=== PATIENT | male | born 1935 | race Caucasian/White ===

== ENCOUNTER 2017-12-03 08:23 | Inpatient (IN) | payer OTHER ==
[2017-12-03] MEDS ORDERED: ACETAMINOPHEN 325 MG TABLET PO PRN (12:15)
[2017-12-03] MEDS ORDERED: ONDANSETRON 4 MG (ODT) TAB PO PRN (12:16)
[2017-12-03] MEDS ORDERED: ONDANSETRON 4 MG/2 ML VIAL IV PRN (12:16)
[2017-12-03] MEDS ORDERED: POLYETHYL GLY 3350 17 GM/DOSE PO PRN (12:16)
[2017-12-03] MEDS ORDERED: D50W 25 GM/50 ML SYRINGE IV PRN (12:19)
[2017-12-03] MEDS ORDERED: GLUCAGON 1 MG/VIAL IM PRN (12:19)
--- NOTE | 2017-12-03 12:49 | P.HP ---
Certification for Inpatient Patient admitted to: Inpatient With expected LOS: >2 Midnights Practitioner: I am a practitioner with admitting privileges, knowledge of patient current condition, hospital course, and medical plan of care. Services: Services provided to patient in accordance with Admission requirements found in Title 42 Section 412.3 of the Code of Federal Regulations Patient History Date of Service: 12/03/17 Reason for admission: PSEUDOMONAS GROWTH FROM ULCER. History of Present Illness: MR. JONES HAS VERY POOR SKIN CONDITION FOR LONG DURATION FROM BEING DIABETIC , HE HAS ULCER R HEEL FOR THAT HE COMES TO [facility]. WE CULTURED AND IT GREW PSEUDOMONAS FROM THE GREEN FOUL DISCHARGE HE HAD. THIS IS NOT SENSITIVE TO ANY ORAL ABX. I CALLED HIM TODAY TO GET ADMITTED FOR IV ABX. HE IS FATIGUED. Allergies No Known Allergies Allergy (Verified 06/10/16 22:20) Home Medications: Atorvastatin Calcium [Lipitor*] 10 mg PO BEDTIME 01/20/16 Metoprolol Tartrate [Lopressor*] 100 mg PO BID 01/20/16 Insulin Detemir [Levemir*] 120 units SQ DAILY 05/06/16 Pregabalin [Lyrica] 150 mg PO BID 05/06/16 Furosemide 40 mg PO BID 06/10/16 Potassium Chloride [Klor-Con M10] 10 meq PO DAILY 06/10/16 Cephalexin [Keflex*] 500 mg PO DAILY 10/04/17 Levocetirizine Dihydrochloride [Xyzal] 5 mg PO DAILY 10/04/17 Insulin Detemir [Levemir*] 40 unit SQ BEDTIME 10/05/17 Smz./Tmp. [Bactrim Ds 800 MG/160 MG] 1 tab PO BID #14 tab 10/06/17 - Past Medical/Surgical History Diabetic: Yes -: IDDM -: diabetic neuropathy. -: bilat cellulitis to legs -: bilat lens implants -: HTN -: hypercholesterolemia -: diabetic neuropathy -: Anemia -: bladder ca -: Spinal Surgery 1989 -: Right Knee Replacement 1989 -: Left ankle sx - pin in place 1994 -: Left 2nd toe sx - nikia in place -: bladder sx benign tumor removal - Family History Father -: Stroke - Social History Alcohol use: No CD- Drugs: No Caffeine use: Yes Review of Systems 10-point ROS is otherwise unremarkable General: Weakness, Malaise Integumentary: Other, As per HPI Physical Examination - Physical Exam General: Alert, Mild distress, Obese HEENT: Atraumatic, PERRLA, Mucous membr. moist/pink, EOMI, Sclerae nonicteric Neck: Supple, 2+ carotid pulse no bruit, No LAD, Without JVD or thyroid abnormality Respiratory: Clear to auscultation bilaterally, Normal air movement Cardiovascular: Regular rate/rhythm, Normal S1 S2 Gastrointestinal: Normal bowel sounds, No tenderness Integumentary: Tenderness/swelling, Erythema, Warmth (RIGHT LEG.), Diabetic ulcer (HEEL ULCER, WITH EXUDATE, YELLOW. FIBRIN.), Other Neurological: Normal gait, Normal speech, Normal strength at 5/5 x4 extr, Normal tone, Normal affect Lymphatics: No axilla or inguinal lymphadenopathy Assessment and Plan - Problems (Diagnosis) (1) Diabetic foot ulcer associated with type 2 diabetes mellitus, with fat layer exposed Current Visit: Yes Status: Chronic Plan: CEFEPIME IV RESUME SANTYL ON THE ULCER PROGNOSIS GUARDED. RESUME DM MEDS. (2) Cellulitis of right leg Onset Date: 10/05/17 Current Visit: No Status: Acute Plan: ABOVE CEFEPIME SHOULD WORK. - Advance Directives Does patient have a Living Will: No Does patient have a Durable POA for Healthcare: No
[2017-12-03] MEDS: NACHLORIDE 0.45% 1,000 ML IV SCH (13:38)
[2017-12-03] MEDS: CEFEPIME/SWI 1gm 1 GM/10 ML SYR IV SCH ×2 (13:38→17:50)
[2017-12-03] MEDS: INSULIN -REGULAR HUMAN 50 UNIT/0.5 ML ML SQ SCH ×3 (13:39→22:40)
--- NOTE | 2017-12-03 14:15 | RAD REPORT ---
EXAM DESCRIPTION: RAD - Chest Single View - 12/03/2017 1:51 pm CLINICAL HISTORY: Chest pain. COMPARISON: 10/04/2017 FINDINGS: Portable technique limits examination quality. Left lung base opacification appears stable since comparative studies. Heart is mildly prominent. Aor tic atherosclerosis. No displaced fractures. IMPRESSION: Stable chest since 10/04/2017.
[2017-12-03 14:54] LABS: Protime INR 1.03
[2017-12-03 15:00] LABS: Absolute Lymphocytes (CBC) 1.1 K/uL (0.7-4.9); Absolute Monocytes 0.5 K/uL (0.1-1.3); Absolute Neutrophil 9.4 K/uL (1.8-8.0); Basophils % 0.1 % (0-1.3); Eosinophils % 0.8 % (0-4.4); Hematocrit 32.9 % (39.6-49.0); Lymphocytes % 9.6 % (15.3-44.8); MCH 27.2 pg (27.0-35.0); MCV 85.9 fL (80-100); Monocytes % 4.4 % (3.3-12.3); RBC Red Blood Cell Count 3.83 M/uL (4.33-5.43)
[2017-12-03 15:23] LABS: Albumin 3.2 g/dL (3.2-5.5); Bilirubin Direct 0.1 mg/dL (0-0.2); Bilirubin Total 0.7 mg/dL (0.3-1.2); Phosphorus 2.4 mg/dL (2.5-4.3); Potassium 4.1 mEq/L (3.6-5.0); Protein, Total 6.3 g/dL (6.0-8.3); Thyroid Stimulating Hormone 1.78 uIU/mL (0.34-5.60)
[2017-12-03] MEDS: ENOXAPARIN 40 MG/0.4 ML SQ SCH (17:50)
[2017-12-03 17:56] LABS: Urine White Blood Cell Casts OK
[2017-12-03 17:57] LABS: Anisocytosis 2+; Blood Morphology Comment NOTED (NOT SEEN); Platelet Estimate ADEQ; Platelets, Giant 1
[2017-12-03 22:14] LABS: UR CREAT 69.9 mg/dL; UR MICROALBUMIN 2.7 mg/dL (< 1.9)
[2017-12-03 22:18] LABS: Urine Appearance CLOUDY; Urine Bilirubin NEGATIVE (NEG); Urine Blood TRACE (NEG); Urine Color YELLOW; Urine Glucose 2+ (NEG); Urine Microscopic Reflex ORDER UMIC; Urine Protein TRACE (NEG); Urine Urobilinogen 0.2 mg/dL (0.2-1.0)
[2017-12-03 22:25] LABS: Urine Bacteria <20 /HPF (NONE SEEN); Urine Culture Reflex Order REFLEXED; Urine RBC <5 /HPF (NONE SEEN); Urine Yeast PRESENT (NONE SEEN)
[2017-12-03] MEDS: FUROSEMIDE 40 MG TABLET PO SCH (23:47)
[2017-12-03] MEDS: METOPROLOL TAR 50 MG TAB PO SCH (23:48)
[2017-12-03] MEDS: PREGABALIN 150 MG CAP PO SCH (23:49)
[2017-12-04] MEDS: CEFEPIME/SWI 1gm 1 GM/10 ML SYR IV SCH ×3 (01:23→17:54)
[2017-12-04 05:17] LABS: Absolute Lymphocytes (CBC) 1.1 K/uL (0.7-4.9); Absolute Monocytes 0.4 K/uL (0.1-1.3); Absolute Neutrophil 6.5 K/uL (1.8-8.0); Basophils % 0.2 % (0-1.3); Eosinophils % 1.6 % (0-4.4); Hematocrit 29.5 % (39.6-49.0); Lymphocytes % 13.5 % (15.3-44.8); MCH 28.5 pg (27.0-35.0); MCV 84.3 fL (80-100); MPV 8.6 fL (7.6-11.3); Monocytes % 5.1 % (3.3-12.3); RBC Red Blood Cell Count 3.49 M/uL (4.33-5.43)
[2017-12-04 06:00] LABS: Magnesium 1.9 mg/dL (1.8-2.5); Potassium 4.3 mEq/L (3.6-5.0)
[2017-12-04] MEDS: INSULIN -REGULAR HUMAN 50 UNIT/0.5 ML ML SQ SCH ×4 (07:30→21:33)
[2017-12-04] MEDS: METOPROLOL TAR 50 MG TAB PO SCH ×2 (08:31→20:37)
[2017-12-04] MEDS: LOPERAMIDE HCL 2 MG CAPSULE PO PRN (08:32)
[2017-12-04] MEDS: FUROSEMIDE 40 MG TABLET PO SCH ×2 (08:33→17:54)
[2017-12-04] MEDS: PREGABALIN 150 MG CAP PO SCH ×2 (08:33→20:37)
[2017-12-04 11:49] LABS: A1c Component 0.75 mg/dL
[2017-12-04] MEDS ORDERED: D50W 25 GM/50 ML SYRINGE IV PRN (11:58)
[2017-12-04] MEDS ORDERED: GLUCAGON 1 MG/VIAL IM PRN (11:58)
--- NOTE | 2017-12-04 12:04 | P.PN ---
Subjective Date of Service: 12/04/17 Chief Complaint: LOT STRONGER HE SAYS Subjective: Improving Review of Systems 10-point ROS is otherwise unremarkable General: Weakness, Malaise Genitourinary: Retention (HE HAS SNYDER AT HOME FOR LONG DURATION AND SMALL BAG.) Neurological: Other (DOES NOT WALK AT HOME, HE HAS DIBAETIC NEUROPATHY, OSTEOARTHRITS.) Physical Examination - Vital Signs Temperature: 97.1 F Blood Pressure: 131/64 Pulse: 75 Respirations: 20 Pulse Ox (%): 90 - Physical Exam General: Alert, In no apparent distress, Obese HEENT: Atraumatic, PERRLA, EOMI Neck: Supple, JVD not distended Respiratory: Clear to auscultation bilaterally, Normal air movement Cardiovascular: Regular rate/rhythm, Normal S1 S2 Gastrointestinal: Normal bowel sounds, No tenderness Musculoskeletal: No tenderness Integumentary: Other (WRAPPED WITH ADRIAN BOOTS TO REMOVE EDEMA.) Neurological: Normal speech, Normal tone, Normal affect Lymphatics: No axilla or inguinal lymphadenopathy - Studies Laboratory Data (last 24 hrs) 12/04/17 05:00: Sodium 137, Potassium 4.3, BUN 25 H, Creatinine 1.29 H, Glucose 250 H, Magnesium 1.9 12/04/17 05:00: WBC 8.2 D, Hgb 9.9 L, Hct 29.5 L, Plt Count 153 12/03/17 14:11: Sodium 134 L, Potassium 4.1, BUN 32 H, Creatinine 1.50 H, Glucose 317 H, Phosphorus 2.4 L, Magnesium 2.0, Total Bilirubin 0.7, AST 21, ALT 17, Alkaline Phosphatase 65 12/03/17 14:11: PT 12.2, INR 1.03, APTT 26.4 12/03/17 14:11: WBC 11.1 H, Hgb 10.4 L, Hct 32.9 L, Plt Count 168 Microbiology Data (last 24 hrs): 12/03/17 13:45 Sputum Gram Stain - Final Medications List Reviewed: Yes Assessment And Plan - Current Problems (Diagnosis) (1) Diabetic foot ulcer associated with type 2 diabetes mellitus, with fat layer exposed Current Visit: Yes Status: Chronic Plan: CEFEPIME IV RESUME SANTYL ON THE ULCER PROGNOSIS GUARDED. RESUME DM MEDS. START LEVEMIR BID DEPSITE ADVISE HOW TO THEY ARE NOT ABLE TO CONTROL DM WELL. DOGS ARE NOT ALLOWED TO COME NEAR HIM. HIS HYGIENE REMAINS POOR. (2) Cellulitis of right leg Onset Date: 10/05/17 Current Visit: No Status: Acute Plan: ABOVE CEFEPIME SHOULD WORK.A ABOVE PICC LINE (3) Diabetes mellitus Current Visit: No Status: Chronic Plan: A1C FU DOS ADJUSTED
[2017-12-04] MEDS: COLLAGENASE 30 GM OINTMENT TOP SCH (12:30)
[2017-12-04 13:20] LABS: A1c Component 0.75 mg/dL; Hemoglobin A1c 8.9 % (4-6.0)
[2017-12-04] MEDS: ENOXAPARIN 40 MG/0.4 ML SQ SCH (17:51)
[2017-12-04] MEDS: INSULIN DETEMIR 100 UNIT/1 ML INSULIN SQ SCH (17:52)
--- NOTE | 2017-12-04 18:55 | RAD REPORT ---
EXAM DESCRIPTION: RAD - Chest Single View - 12/04/2017 6:34 pm CLINICAL HISTORY: PICC line placement COMPARISON: None. FINDINGS: Portable chest was obtained following placement of a right upper extremity PICC line. The catheter tip projects over the SVC.
[2017-12-04] MEDS: PROMOD 30 ML DOSE PO SCH (20:37)
[2017-12-04] MEDS: ATORVASTATIN 10 MG TAB PO SCH (20:37)
[2017-12-04] MEDS ORDERED: INSULIN DETEMIR 100 UNIT/1 ML INSULIN SQ SCH (21:00)
[2017-12-04] MEDS ORDERED: PREGABALIN 150 MG CAP PO SCH (21:00)
[2017-12-04] MEDS ORDERED: METOPROLOL TAR 50 MG TAB PO SCH (21:00)
[2017-12-04] MEDS ORDERED: FUROSEMIDE 40 MG TABLET PO SCH (21:00)
[2017-12-04] MEDS: NACHLORIDE 0.45% 1,000 ML IV SCH (22:20)
[2017-12-04] MEDS: DIPHENHYDRAMINE 25 MG TAB/CAP PO PRN (23:50)
[2017-12-05] MEDS: CEFEPIME/SWI 1gm 1 GM/10 ML SYR IV SCH ×3 (01:05→16:19)
[2017-12-05] MEDS: NACHLORIDE 0.45% 1,000 ML IV SCH (05:36)
[2017-12-05 06:13] LABS: Absolute Lymphocytes (CBC) 1.2 K/uL (0.7-4.9); Absolute Monocytes 0.5 K/uL (0.1-1.3); Basophils % 0.3 % (0-1.3); Eosinophils % 2.5 % (0-4.4); Hematocrit 31.8 % (39.6-49.0); Lymphocytes % 15.7 % (15.3-44.8); MCH 27.5 pg (27.0-35.0); MCV 85.9 fL (80-100); MPV 9.1 fL (7.6-11.3); Monocytes % 6.3 % (3.3-12.3)
[2017-12-05 06:15] LABS: Potassium 4.2 mEq/L (3.6-5.0)
[2017-12-05] MEDS: INSULIN -REGULAR HUMAN 50 UNIT/0.5 ML ML SQ SCH ×4 (07:30→22:05)
[2017-12-05] MEDS: INSULIN DETEMIR 100 UNIT/1 ML INSULIN SQ SCH ×2 (08:34→16:18)
[2017-12-05] MEDS: COLLAGENASE 30 GM OINTMENT TOP SCH (09:00)
[2017-12-05] MEDS ORDERED: COLLAGENASE 30 GM OINTMENT TOP SCH (09:00)
[2017-12-05] MEDS: PROMOD 30 ML DOSE PO SCH ×2 (09:00→22:03)
[2017-12-05] MEDS ORDERED: HOME MED 1 EA UNK (Levocetirizine Dihydrochloride [Xyzal] 5 MG) PO SCH (09:00)
[2017-12-05] MEDS ORDERED: HOME MED 1 EA UNK (Potassium Chloride [Klor-Con M10] 10 MEQ) PO SCH (09:00)
[2017-12-05] MEDS: METOPROLOL TAR 50 MG TAB PO SCH ×2 (09:59→21:58)
[2017-12-05] MEDS: POTASSIUM CL SA 10 MEQ TAB PO SCH (10:00)
[2017-12-05] MEDS: CETIRIZINE HCL 5 MG TABLET PO SCH (10:00)
[2017-12-05] MEDS: FUROSEMIDE 40 MG TABLET PO SCH ×2 (10:00→16:19)
[2017-12-05] MEDS: PREGABALIN 150 MG CAP PO SCH ×2 (10:01→21:58)
--- NOTE | 2017-12-05 12:26 | P.PN ---
Subjective Date of Service: 12/05/17 Chief Complaint: LOT STRONGER HE SAYS Subjective: Improving (FEELS BETTER. NO PAIN, NO FEVER) Review of Systems 10-point ROS is otherwise unremarkable General: Weakness, Malaise Integumentary: As per HPI Physical Examination - Vital Signs Temperature: 97.8 F Blood Pressure: 146/68 Pulse: 78 Respirations: 20 Pulse Ox (%): 91 - Physical Exam General: Alert, In no apparent distress, Obese HEENT: Atraumatic, PERRLA, EOMI Neck: Supple, JVD not distended Respiratory: Clear to auscultation bilaterally, Normal air movement Cardiovascular: Regular rate/rhythm, Normal S1 S2 Gastrointestinal: Normal bowel sounds, No tenderness Musculoskeletal: No tenderness Integumentary: No rashes, Diabetic ulcer (R HEEL ULCER IS DRYER, LESS EXUDATE, SMALL ESCHAR WILL BE TAKEN OFF IN [facility].), Other (CHRONIC SKIN CHANGES, LEGS, VENOUS STASIS, DRY SECRETIONS. ) Neurological: Normal speech, Normal tone, Normal affect Lymphatics: No axilla or inguinal lymphadenopathy - Studies Laboratory Data (last 24 hrs) 12/05/17 05:35: Sodium 136, Potassium 4.2, BUN 30 H, Creatinine 1.37 H, Glucose 270 H, Magnesium 2.0 12/05/17 05:35: WBC 7.9, Hgb 10.2 L, Hct 31.8 L, Plt Count 170 Microbiology Data (last 24 hrs): 12/03/17 13:45 Sputum Gram Stain - Final 12/03/17 13:45 Sputum Culture & Sensitivity - Final Medications List Reviewed: Yes Assessment And Plan - Current Problems (Diagnosis) (1) Diabetic foot ulcer associated with type 2 diabetes mellitus, with fat layer exposed Current Visit: Yes Status: Chronic Plan: CEFEPIME IV RESUME SANTYL ON THE ULCER PROGNOSIS GUARDED. RESUME DM MEDS. START LEVEMIR BID DEPSITE ADVISE HOW TO THEY ARE NOT ABLE TO CONTROL DM WELL. DOGS ARE NOT ALLOWED TO COME NEAR HIM. HIS HYGIENE REMAINS POOR. IV CEFEPIME. SANTYL TOPICAL. (2) Cellulitis of right leg Onset Date: 10/05/17 Current Visit: No Status: Acute Plan: ABOVE CEFEPIME SHOULD WORK.A ABOVE PICC LINE (3) Diabetes mellitus Current Visit: No Status: Chronic Plan: A1C FU DOS ADJUSTED
--- NOTE | 2017-12-05 12:54 | EKG ---
Test Date: 2017-12-03 Test Time: 13:39:54 Educational Sign Language Interpreter: CASEY MEASUREMENT RESULTS: Intervals: Rate: 76 SC: 182 QRSD: 114 QT: 428 QTc: 481 [place]: P: 72 SC: 182 QRS: -80 T: 5 INTERPRETIVE STATEMENTS: Normal sinus rhythm Left axis deviation Anterior infarct, age undetermined Abnormal ECG Compared to ECG 10/04/2017 14:43:21 No significant changes Electronically Signed On 12-05-17 12:54:07 CDT by Ganesh Vail
[2017-12-05] MEDS: ENOXAPARIN 40 MG/0.4 ML SQ SCH (16:18)
[2017-12-05] MEDS: LOPERAMIDE HCL 2 MG CAPSULE PO PRN (16:19)
[2017-12-05] MEDS: ATORVASTATIN 10 MG TAB PO SCH (21:58)
[2017-12-05] MEDS: DIPHENHYDRAMINE 25 MG TAB/CAP PO PRN (22:06)
[2017-12-06] MEDS: CEFEPIME/SWI 1gm 1 GM/10 ML SYR IV SCH ×3 (01:52→20:52)
[2017-12-06 05:15] LABS: Absolute Lymphocytes (CBC) 1.2 K/uL (0.7-4.9); Absolute Monocytes 0.4 K/uL (0.1-1.3); Absolute Neutrophil 4.7 K/uL (1.8-8.0); Basophils % 0.5 % (0-1.3); Eosinophils % 3.8 % (0-4.4); Hematocrit 30.6 % (39.6-49.0); Lymphocytes % 18.1 % (15.3-44.8); MCV 85.4 fL (80-100); MPV 8.8 fL (7.6-11.3); Monocytes % 6.3 % (3.3-12.3); RBC Red Blood Cell Count 3.58 M/uL (4.33-5.43)
[2017-12-06 05:22] LABS: Potassium 3.9 mEq/L (3.6-5.0)
[2017-12-06] MEDS ORDERED: KCL 20 MEQ/100 mL IVPB 20 MEQ/100 ML BAG IV SCH (06:00)
[2017-12-06] MEDS: COLLAGENASE 30 GM OINTMENT TOP SCH (09:00)
[2017-12-06] MEDS: INSULIN DETEMIR 100 UNIT/1 ML INSULIN SQ SCH ×2 (09:08→16:36)
[2017-12-06] MEDS: INSULIN -REGULAR HUMAN 50 UNIT/0.5 ML ML SQ SCH ×4 (09:08→20:55)
[2017-12-06] MEDS: PROMOD 30 ML DOSE PO SCH ×2 (09:08→20:56)
[2017-12-06] MEDS: METOPROLOL TAR 50 MG TAB PO SCH ×2 (09:09→20:54)
[2017-12-06] MEDS: POTASSIUM CL SA 10 MEQ TAB PO SCH (09:09)
[2017-12-06] MEDS: PREGABALIN 150 MG CAP PO SCH ×2 (09:09→20:53)
[2017-12-06] MEDS: FUROSEMIDE 40 MG TABLET PO SCH (09:09)
[2017-12-06] MEDS: CETIRIZINE HCL 5 MG TABLET PO SCH (09:09)
[2017-12-06 11:34] LABS: Vitamin D 1,25-Dihydroxy Total 25 pg/mL (18-72); Vitamin D,1,25-OH2, D2 <8 pg/mL
--- NOTE | 2017-12-06 13:06 | P.PN ---
Subjective Date of Service: 12/06/17 Chief Complaint: LOT STRONGER HE SAYS Subjective: Improving Review of Systems 10-point ROS is otherwise unremarkable General: Weakness, Malaise Integumentary: Other (LEG CELLULITIS) Physical Examination - Vital Signs Temperature: 98.2 F Blood Pressure: 116/56 Pulse: 64 Respirations: 17 Pulse Ox (%): 95 - Physical Exam General: Alert, Mild distress HEENT: Atraumatic, PERRLA, EOMI Neck: Supple, JVD not distended Respiratory: Clear to auscultation bilaterally, Normal air movement Cardiovascular: Regular rate/rhythm, Normal S1 S2 Gastrointestinal: Normal bowel sounds, No tenderness Musculoskeletal: No tenderness Integumentary: No rashes Neurological: Normal speech, Normal tone, Normal affect Lymphatics: No axilla or inguinal lymphadenopathy - Studies Laboratory Data (last 24 hrs) 12/06/17 04:49: Sodium 137, Potassium 3.9, BUN 33 H, Creatinine 1.42 H, Glucose 227 H, Magnesium 2.0 12/06/17 04:49: WBC 6.6 D, Hgb 10.0 L, Hct 30.6 L, Plt Count 153 Microbiology Data (last 24 hrs): 12/03/17 21:23 Clean Catch Urine [place] Count - Final >100,000 CFU/ML. 12/03/17 21:23 Clean Catch Urine - Final Pseudomonas Aeruginosa 12/03/17 13:45 Sputum Gram Stain - Final 12/03/17 13:45 Sputum Culture & Sensitivity - Final Medications List Reviewed: Yes Assessment And Plan - Current Problems (Diagnosis) (1) Diabetic foot ulcer associated with type 2 diabetes mellitus, with fat layer exposed Onset Date: 12/06/17 Current Visit: Yes Status: Chronic Plan: CEFEPIME IV RESUME SANTYL ON THE ULCER PROGNOSIS GUARDED. RESUME DM MEDS. START LEVEMIR BID DEPSITE ADVISE HOW TO THEY ARE NOT ABLE TO CONTROL DM WELL. DOGS ARE NOT ALLOWED TO COME NEAR HIM. HIS HYGIENE REMAINS POOR. IV CEFEPIME. SANTYL TOPICAL. (2) Cellulitis of right leg Onset Date: 10/05/17 Current Visit: No Status: Acute Plan: ABOVE CEFEPIME SHOULD WORK.A ABOVE PICC LINE (3) Diabetes mellitus Current Visit: No Status: Chronic Plan: A1C FU DOS ADJUSTED (4) Colonized with infectious organism Current Visit: Yes Status: Chronic Plan: COLONIZED CATHETER-URINE , IGNORE THE COLONIZED PSEUDOMONAS BACTERIA.
[2017-12-06] MEDS: ENOXAPARIN 40 MG/0.4 ML SQ SCH (16:35)
[2017-12-06] MEDS: NACHLORIDE 0.45% 1,000 ML IV SCH (20:52)
[2017-12-06] MEDS: ATORVASTATIN 10 MG TAB PO SCH (20:54)
[2017-12-07 05:20] LABS: Absolute Monocytes 0.4 K/uL (0.1-1.3); Absolute Neutrophil 3.9 K/uL (1.8-8.0); Basophils % 0.7 % (0-1.3); Eosinophils % 3.9 % (0-4.4); Hematocrit 29.7 % (39.6-49.0); Lymphocytes % 18.1 % (15.3-44.8); MCH 27.6 pg (27.0-35.0); MCV 86.4 fL (80-100); Monocytes % 7.1 % (3.3-12.3); RBC Red Blood Cell Count 3.43 M/uL (4.33-5.43)
[2017-12-07 05:57] LABS: Magnesium 2.2 mg/dL (1.8-2.5); Potassium 4.4 mEq/L (3.6-5.0)
[2017-12-07 06:35] VITALS: BMI 34.9
[2017-12-07] MEDS: COLLAGENASE 30 GM OINTMENT TOP SCH (09:00)
[2017-12-07] MEDS: CETIRIZINE HCL 5 MG TABLET PO SCH (09:10)
[2017-12-07] MEDS: METOPROLOL TAR 50 MG TAB PO SCH (09:11)
[2017-12-07] MEDS: PROMOD 30 ML DOSE PO SCH (09:11)
[2017-12-07] MEDS: INSULIN DETEMIR 100 UNIT/1 ML INSULIN SQ SCH (09:11)
[2017-12-07] MEDS: PREGABALIN 150 MG CAP PO SCH (09:11)
[2017-12-07] MEDS: CEFEPIME/SWI 1gm 1 GM/10 ML SYR IV SCH (09:11)
[2017-12-07] MEDS: INSULIN -REGULAR HUMAN 50 UNIT/0.5 ML ML SQ SCH ×2 (09:12→13:08)
[2017-12-07 10:14] VITALS: O2SAT 91
--- NOTE | 2017-12-07 12:45 | P.DS ---
Admission Date: 12/03/17 Discharge Date: 12/07/17 Disposition: DC HOME/HOME HEALTH CARE Discharge Condition: FAIR Reason for Admission: LOT STRONGER HE SAYS - Problems (1) Diabetic foot ulcer associated with type 2 diabetes mellitus, with fat layer exposed Onset Date: 12/06/17 Current Visit: Yes Status: Chronic (2) Cellulitis of right leg Onset Date: 10/05/17 Current Visit: No Status: Acute (3) Diabetes mellitus Current Visit: No Status: Chronic (4) Colonized with infectious organism Current Visit: Yes Status: Chronic Brief History of Present Illness: MR. JONES HAS VERY POOR SKIN CONDITION FOR LONG DURATION FROM BEING DIABETIC , HE HAS ULCER R HEEL FOR THAT HE COMES TO [facility]. WE CULTURED AND IT GREW PSEUDOMONAS FROM THE GREEN FOUL DISCHARGE HE HAD. THIS IS NOT SENSITIVE TO ANY ORAL ABX. I CALLED HIM TODAY TO GET ADMITTED FOR IV ABX. HE IS FATIGUED. MR. JONES HAS DONE WELL WITH HIS INFECTION IN RIGHT LEG. HE HAS ULCER R HEEL FOR THAT HE GOES TO [facility]. HE IS FEELING GREAT. HE WILL CONTINUE CEFEPIME IV FOR 14 DAYS TOTAL. FU IN [facility]. Vital Signs/Physical Exam: Temp Pulse Resp BP Pulse Ox 97.2 F 67 16 133/61 91 12/07/17 08:00 12/07/17 09:11 12/07/17 08:00 12/07/17 09:11 12/07/17 08:00 Laboratory Data at Discharge: WBC 5.6 K/uL (4.3-10.9) D 12/07/17 05:00 Hgb 9.5 g/dL (13.6-17.9) L 12/07/17 05:00 Hct 29.7 % (39.6-49.0) L 12/07/17 05:00 Plt Count 165 K/uL (152-406) 12/07/17 05:00 PT 12.2 SECONDS (9.5-12.5) 12/03/17 14:11 INR 1.03 12/03/17 14:11 APTT 26.4 SECONDS (24.3-36.9) 12/03/17 14:11 Sodium 138 mEq/L (135-145) 12/07/17 05:00 Potassium 4.4 mEq/L (3.6-5.0) 12/07/17 05:00 BUN 36 mg/dL (6-20) H 12/07/17 05:00 Creatinine 1.39 mg/dL (0.61-1.24) H 12/07/17 05:00 Glucose 218 mg/dL (65-120) H 12/07/17 05:00 Phosphorus 2.4 mg/dL (2.5-4.3) L 12/03/17 14:11 Magnesium 2.2 mg/dL (1.8-2.5) 12/07/17 05:00 Total Bilirubin 0.7 mg/dL (0.3-1.2) 12/03/17 14:11 AST 21 IU/L (10-42) 12/03/17 14:11 ALT 17 IU/L (10-60) 12/03/17 14:11 Alkaline Phosphatase 65 IU/L (42-121) 12/03/17 14:11 Home Medications: Atorvastatin Calcium [Lipitor*] 10 mg PO BEDTIME 01/20/16 Metoprolol Tartrate [Lopressor*] 100 mg PO BID 01/20/16 Insulin Detemir [Levemir*] 120 units SQ DAILY 05/06/16 Pregabalin [Lyrica] 150 mg PO BID 05/06/16 Furosemide 40 mg PO BID 06/10/16 Potassium Chloride [Klor-Con M10] 10 meq PO DAILY 06/10/16 Cephalexin [Keflex*] 500 mg PO DAILY 10/04/17 Levocetirizine Dihydrochloride [Xyzal] 5 mg PO DAILY 10/04/17 Insulin Detemir [Levemir*] 40 unit SQ BEDTIME 10/05/17 Diet: ADA
[2017-12-07 14:43] VITALS: BP 134/64; TEMP 97.6
== END 2017-12-07 13:40 | disposition home health service (06) | DRG 638 ==
LOC: OBSVTOIN 11:46 → 2ND 11:46
PROVIDERS: ADMIT Internal Medicine; ATTEND Internal Medicine
DX: E11.621 Type 2 diabetes mellitus with foot ulcer (principal); L97.412 Non-pressure chronic ulcer of right heel and midfoot with fat layer exposed; L03.115 Cellulitis of right lower limb; I10 Essential (primary) hypertension; E78.00 Pure hypercholesterolemia, unspecified; M19.90 Unspecified osteoarthritis, unspecified site; Z22.8 Carrier of other infectious diseases
CPT/HCPCS: 11042; 36415; 71045; 80048; 80076; 81003; 81015; 82043; 82570; 82607; 82652; 82962; 83036; 83735; 84100; 84443; 85025; 85610; 85730; 86140; 87040; 87070; 87075; 87077; 87086; 87088; 87186; 87205; 93005; G0378; G0379; J0692; J1650; J3590

== ENCOUNTER 2018-02-13 09:43 | Inpatient (IN) | payer OTHER ==
[2018-02-13] MEDS ORDERED: D50W 25 GM/50 ML SYRINGE IV PRN (10:36)
[2018-02-13] MEDS ORDERED: GLUCAGON 1 MG/VIAL IM PRN (10:36)
[2018-02-13 10:58] VITALS: BMI 32.2
[2018-02-13] MEDS ORDERED: PNEUMOCOCCAL VACCINE 0.5 ML IMVAC ONE (11:00)
[2018-02-13] MEDS ORDERED: DIPHENHYDRAMINE 25 MG TAB/CAP PO PRN (11:00)
[2018-02-13] MEDS ORDERED: ONDANSETRON 4 MG (ODT) TAB PO PRN (11:00)
[2018-02-13] MEDS ORDERED: ONDANSETRON 4 MG/2 ML VIAL IV PRN (11:00)
[2018-02-13] MEDS ORDERED: POLYETHYL GLY 3350 17 GM/DOSE PO PRN (11:00)
[2018-02-13] MEDS ORDERED: LOPERAMIDE HCL 2 MG CAPSULE PO PRN (11:00)
[2018-02-13] MEDS ORDERED: ACETAMINOPHEN 325 MG TABLET PO PRN (11:00)
[2018-02-13] MEDS: INSULIN -REGULAR HUMAN 50 UNIT/0.5 ML ML SQ SCH ×3 (11:30→21:00)
[2018-02-13] MEDS: NACHLORIDE 0.45% 1,000 ML IV SCH (11:30)
--- NOTE | 2018-02-13 11:53 | P.HP ---
Certification for Inpatient Patient admitted to: Inpatient With expected LOS: >2 Midnights Practitioner: I am a practitioner with admitting privileges, knowledge of patient current condition, hospital course, and medical plan of care. Services: Services provided to patient in accordance with Admission requirements found in Title 42 Section 412.3 of the Code of Federal Regulations Patient History Date of Service: 02/13/18 Reason for admission: MULTIBACTERIAL CELLULITIS AND DIABETIC NECROTIC ULCER History of Present Illness: MS JONES HAS GROWN 3 DIFF BACTERIA FROM NON HEALING, DIABETIC ULCER WITH FOUL SMELLING DISCHARGE AND NECROTIC BASE. HE HAS THIS ULCER FOR LONG DURATION. HE IS DIABETIC, WITH CHRONIC EDEMA AND HOUSE CONDITION IS POOR POSSIBLY COLONIZING MULTIPLE BACTERIA. HE HAS NO FEVER, CHEST PAIN, NAUSEA, VOMITING. Allergies No Known Allergies Allergy (Verified 06/10/16 22:20) Home Medications: Atorvastatin Calcium [Lipitor*] 10 mg PO BEDTIME 01/20/16 Metoprolol Tartrate [Lopressor*] 100 mg PO BID 01/20/16 Insulin Detemir [Levemir*] 120 units SQ DAILY 05/06/16 Pregabalin [Lyrica] 150 mg PO BID 05/06/16 Furosemide 40 mg PO BID 06/10/16 Potassium Chloride [Klor-Con M10] 10 meq PO DAILY 06/10/16 Cephalexin [Keflex*] 500 mg PO DAILY 10/04/17 Levocetirizine Dihydrochloride [Xyzal] 5 mg PO DAILY 10/04/17 Insulin Detemir [Levemir*] 40 unit SQ BEDTIME 10/05/17 - Past Medical/Surgical History Has patient received pneumonia vaccine in the past: Yes Diabetic: Yes -: IDDM -: diabetic neuropathy. -: bilat cellulitis to legs -: bilat lens implants -: HTN -: hypercholesterolemia -: diabetic neuropathy -: Anemia -: bladder ca -: Spinal Surgery 1989 -: Right Knee Replacement 1989 -: Left ankle sx - pin in place 1994 -: Left 2nd toe sx - nikia in place -: bladder sx benign tumor removal - Family History Father -: Stroke - Social History Smoking Status: Never smoker Alcohol use: No CD- Drugs: No Caffeine use: Yes Place of Residence: Home Review of Systems 10-point ROS is otherwise unremarkable Integumentary: As per HPI Physical Examination - Physical Exam General: Alert, In no apparent distress, Obese HEENT: Atraumatic, PERRLA, Mucous membr. moist/pink, EOMI, Sclerae nonicteric Neck: Supple, 2+ carotid pulse no bruit, No LAD, Without JVD or thyroid abnormality Respiratory: Clear to auscultation bilaterally, Normal air movement Cardiovascular: Regular rate/rhythm, Normal S1 S2 Gastrointestinal: Normal bowel sounds, No tenderness Musculoskeletal: No tenderness Integumentary: Diabetic ulcer (I TAKE CARE [facility] HIM IN [facility]. HE HAS 1 CM DEEP WIDE ULCER OF THE HEEL WITH NECROTIC TISSUE, FRAIL BLEEDING ) Neurological: Normal speech, Abnormal gait (CONTRACTURES, WHEELCHAIR BOUND) Lymphatics: No axilla or inguinal lymphadenopathy Assessment and Plan - Problems (Diagnosis) (1) Diabetic ulcer of right heel with necrosis of muscle Current Visit: Yes Status: Chronic Plan: DEBRIDE SURGICALLY CONSULT DR SCALES HEALING IS POOR ABOVE CONDITIONS DELINEATED HIS EDEMA IS SEVERE AND THE FARROW WRAPS WERE VERY DIRTY IN THE PAST. WE CURRENTLY ARE DOING COBAN WRAPS. DAUGHTER IS THE MAIN CAREGIVER. Qualifiers: Diabetes mellitus type: type 2 Qualified Code(s): E11.621 - Type 2 diabetes mellitus with foot ulcer; L97.413 - Non-pressure chronic ulcer of right heel and midfoot with necrosis of muscle (2) Cellulitis of right leg Onset Date: 10/05/17 Current Visit: No Status: Chronic Plan: ZOSYN IV ULCER GREW 3 DIFF BACTERIA AND THINK THEY SEEM TO BE CULPRITS AND NOT CONTAMINANT THE ULCER DOES HAVE FLAIL, DARK, NECROTIC TISSUE THAT BLEEDS EASILY AND IS RELATED TO THE MORGANELLA AND PSEUDOMONAS GROWTH. 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 - Advance Directives Does patient have a Living Will: No Does patient have a Durable POA for Healthcare: No
[2018-02-13] MEDS ORDERED: PIPER/TAZO/NS 3.375gm 3.375 GM/100 ML BAG IV SCH (12:00)
[2018-02-13 12:07] LABS: Absolute Lymphocytes (CBC) 1.2 K/uL (0.7-4.9); Absolute Monocytes 0.4 K/uL (0.1-1.3); Absolute Neutrophil 5.4 K/uL (1.8-8.0); Basophils % 0.4 % (0-1.3); Eosinophils % 3.1 % (0-4.4); Hematocrit 33.1 % (39.6-49.0); Lymphocytes % 16.9 % (15.3-44.8); MCV 86.5 fL (80-100); MPV 8.6 fL (7.6-11.3); Monocytes % 6.1 % (3.3-12.3); RBC Red Blood Cell Count 3.83 M/uL (4.33-5.43)
[2018-02-13 12:08] LABS: Protime INR 1.03
[2018-02-13 12:11] LABS: Urine Appearance CLEAR; Urine Bilirubin NEGATIVE (NEG); Urine Blood TRACE (NEG); Urine Color YELLOW; Urine Glucose NEGATIVE (NEG); Urine Protein NEGATIVE (NEG); Urine Specific Gravity <=1.005 (1.005-1.030); Urine Urobilinogen 0.2 mg/dL (0.2-1.0); Urine pH 7.5 (5.0-7.0)
[2018-02-13 12:19] LABS: Urine Microscopic Reflex ORDER UMIC
[2018-02-13 12:23] LABS: UR CREAT 15.2 mg/dL (20-370); UR MICROALBUMIN 1.2 mg/dL (< 1.9)
[2018-02-13 12:28] LABS: Urine Bacteria >50 /HPF (NONE SEEN); Urine RBC NONE SEEN /HPF (NONE SEEN)
[2018-02-13 12:29] LABS: Urine Culture Reflex Order NOT NEEDED; Urine Yeast PRESENT (NONE SEEN); Urine Yeast with Hyphae PRESENT
[2018-02-13 12:30] LABS: A1c Component 0.95 mg/dL; Hemoglobin A1c 10.2 % (4-6.0)
[2018-02-13 15:07] LABS: Albumin 3.3 g/dL (3.2-5.5); Bilirubin Direct 0.1 mg/dL (0-0.2); Bilirubin Total 0.8 mg/dL (0.3-1.2); Magnesium 2.4 mg/dL (1.8-2.5); Phosphorus 3.2 mg/dL (2.5-4.3); Potassium 4.3 mEq/L (3.6-5.0); Thyroid Stimulating Hormone 3.32 uIU/mL (0.34-5.60)
[2018-02-13] MEDS: ENOXAPARIN 40 MG/0.4 ML SQ SCH (16:46)
--- NOTE | 2018-02-13 16:49 | RAD REPORT ---
EXAM DESCRIPTION: Billie De And Kenyatta (2 Views)02/13/2018 4:15 pm CLINICAL HISTORY: Cough COMPARISON: November 2017 FINDINGS: The left base remains hazy. The remainder of the lungs appear clear of acute infiltrate. The heart is normal size IMPRESSION: Left base remains hazy probably secondary to a combination of elevation of the left bill diaphragm and scarring or atelectasis.
[2018-02-13] MEDS: PIPER/TAZO/NS 3.375gm 3.375 GM/100 ML BAG IV SCH (20:00)
[2018-02-13] MEDS ORDERED: INSULIN DETEMIR 100 UNIT/1 ML INSULIN SQ SCH (21:00)
[2018-02-13] MEDS ORDERED: PIPER/TAZO/NS 3.375gm 3.375 GM/100 ML BAG ONE (21:11)
[2018-02-13] MEDS: METOPROLOL TAR 50 MG TAB PO SCH (21:23)
[2018-02-13] MEDS: ATORVASTATIN 10 MG TAB PO SCH (21:24)
[2018-02-13] MEDS: PREGABALIN 150 MG CAP PO SCH (21:24)
[2018-02-13] MEDS: FUROSEMIDE 40 MG TABLET PO SCH (22:24)
[2018-02-14] MEDS ORDERED: PIPER/TAZO/NS 3.375gm 3.375 GM/100 ML BAG ONE (03:28)
[2018-02-14] MEDS: PIPER/TAZO/NS 3.375gm 3.375 GM/100 ML BAG IV SCH ×3 (04:15→20:20)
[2018-02-14 05:32] LABS: Absolute Lymphocytes (CBC) 1.3 K/uL (0.7-4.9); Absolute Monocytes 0.5 K/uL (0.1-1.3); Absolute Neutrophil 5.3 K/uL (1.8-8.0); Basophils % 0.5 % (0-1.3); Eosinophils % 3.8 % (0-4.4); Hematocrit 33.4 % (39.6-49.0); Lymphocytes % 17.9 % (15.3-44.8); MCV 85.9 fL (80-100); MPV 8.8 fL (7.6-11.3); Monocytes % 6.4 % (3.3-12.3); RBC Red Blood Cell Count 3.89 M/uL (4.33-5.43)
[2018-02-14 06:15] LABS: Magnesium 2.1 mg/dL (1.8-2.5); Potassium 4.3 mEq/L (3.6-5.0)
[2018-02-14] MEDS ORDERED: D50W 25 GM/50 ML SYRINGE IV PRN (06:39)
[2018-02-14] MEDS ORDERED: GLUCAGON 1 MG/VIAL IM PRN (06:39)
[2018-02-14] MEDS: INSULIN 70/30 100 UNITS/ML SQ SCH ×2 (07:30→16:30)
[2018-02-14] MEDS: INSULIN -REGULAR HUMAN 50 UNIT/0.5 ML ML SQ SCH ×4 (07:30→20:21)
--- NOTE | 2018-02-14 07:35 | EKG ---
Test Date: 2018-02-13 Test Time: 11:52:36 Scooter Mechanic: SONALI MEASUREMENT RESULTS: Intervals: Rate: 71 W[place]: 220 QRSD: 84 QT: 396 QTc: 430 [place]: P: 38 WY: 220 QRS: 235 T: 154 INTERPRETIVE STATEMENTS: Sinus rhythm with 1st degree AV block Low voltage QRS Inferior infarct, possibly acute Anterolateral infarct, cited previously Abnormal ECG Compared to ECG 12/03/2017 13:39:54 First degree AV block now present Low QRS voltage now present Electronically Signed On 02-14-18 07:35:20 CDT by Ganesh Vail
--- NOTE | 2018-02-14 08:14 | RAD REPORT ---
EXAM DESCRIPTION: RAD - Chest Single View - 02/14/2018 12:01 am CLINICAL HISTORY: Device placement PICC line placement COMPARISON: none FINDINGS: A PICC line has been inserted with its tip in the distal superior vena cava. The left hemidiaphragm remains elevated. Mild left basilar opacity is unchanged. The heart is normal size. IMPRESSION: PICC line with its tip in the distal superior vena cava Left hemidiaphragm remains elevated with mild left basilar opacity which could represent atelectasis or scarring
[2018-02-14] MEDS: POTASSIUM CL SA 10 MEQ TAB PO SCH (09:00)
[2018-02-14] MEDS: FUROSEMIDE 40 MG TABLET PO SCH ×2 (09:00→20:23)
[2018-02-14] MEDS ORDERED: INSULIN DETEMIR 100 UNIT/1 ML INSULIN SQ SCH ×2 (09:00)
[2018-02-14] MEDS ORDERED: HOME MED 1 EA UNK (Levocetirizine Dihydrochloride [Xyzal] 5 MG) PO SCH (09:00)
[2018-02-14] MEDS: RAMIPRIL 5 MG CAP PO SCH (09:00)
[2018-02-14] MEDS: CETIRIZINE HCL 5 MG TABLET PO SCH (09:00)
[2018-02-14] MEDS: PREGABALIN 150 MG CAP PO SCH ×2 (09:00→20:23)
[2018-02-14] MEDS: METOPROLOL TAR 50 MG TAB PO SCH ×2 (09:49→20:22)
[2018-02-14] MEDS: CYANOCOBALAMIN 1000MCG/ML INJ SQ SCH (10:06)
[2018-02-14] MEDS ORDERED: PROPOFOL 200 MG/20 ML VIAL IV ONE (10:21)
[2018-02-14] MEDS ORDERED: LIDOCAINE 1% MPF 5 ML VIAL ONE (10:21)
[2018-02-14] MEDS ORDERED: FENTANYL CITR 100 MCG/2 ML ONE (10:22)
[2018-02-14] MEDS ORDERED: NA CHLORIDE 0.9% 1,000 ML ONE (10:42)
[2018-02-14] MEDS ORDERED: BUPIVACAINE 0.5% Inj,MDV 50 mL VIAL ONE (10:42)
[2018-02-14] MEDS ORDERED: EPHEDRINE SULF 50 MG/5 ML SYR ONE (11:03)
[2018-02-14] MEDS ORDERED: COLLAGENASE 30 GM OINTMENT TOP ONE (11:18)
--- NOTE | 2018-02-14 11:23 | PREOPCON ---
Date of Consultation: 02/14/2018 Reason For Consultation: Infected wound, right heel. History Of Present Illness: The patient is an 82-year-old gentleman with multiple medical problems, who has had a nonhealing diabetic ulcer with foul smell in necrotic base for a long duration. He has lymphedema. He has no fever. No purulent discharge. No chest pain. No sore throat, runny nose, c ough, headaches, or dizziness. Review of Systems: Otherwise unremarkable. Past Medical History: He has insulin-dependent diabetes, diabetic neuropathy, history of cellulitis, hypertension, hypercholesterolemia. Past Surgical History: Bilateral lens implants, bladder cancer surgeries, spinal surgery, right knee replacement, left ankle surgery, left second toe surgery. Allergies: NONE. Social History: He does not smoke. Does not drink alcohol. Family History: Significant for stroke. Physical Examination: Vital Signs: Stable. He is afebrile. General: He is awake, alert, and oriented x3. Head and Neck: Cranial nerves 2 through 12 grossly within normal limits. No neck masses. No JVD. Throat clear. Neck is supple. Chest: Clear. Heart: S1, S2. Abdomen: Soft. Extremities: The patient has Coban wraps on both legs and right ileus exposed. There was some nonhe aling ulcer approximately 4 x 4 cm with a necrotic base and moderate amount of fibrin present. Minim al erythema and warmth. Laboratory Data: White count is 7.4. Coags are normal. Chemistry reviewed. He has renal insuffici ency and . Assessment: An 82-year-old gentleman with infected wound, right heel. Recommendations: Continue antibiotics as ordered. We will take the patient to surgery for debrideme nt of this area. The patient understands the risks, benefits, and alternatives and agrees to procedu re. WINDY/MODMar Voice ID: [id number] Report ID: [id number]
--- NOTE | 2018-02-14 11:24 | P.OP ---
Preoperative diagnosis: Infected wound right heal Postoperative diagnosis: same Primary procedure: Debridement R heel wound to sq and mm 4x4 cm Anesthesia: gen Estimated blood loss: min Specimen: infected tissue Findings: as above Complications: None Transferred to: Recovery Room Condition: Good
[2018-02-14] MEDS ORDERED: HYDROCODONE/APAP 7.5/325 MG TAB PO PRN (11:49)
--- NOTE | 2018-02-14 13:23 | OP ---
Date of Procedure: 02/14/2018 Surgeon: Lewis Thakur MD Preoperative Diagnosis: Infected wound, right heel. Postoperative Diagnosis: Infected wound, right heel. Procedure: Debridement of infected wound right heel 4 x 4 cm to subcutaneous tissue and muscle. Estimated Blood Loss: Minimal. Specimens: Infected tissue for cultures. Findings: As above. Anesthesia: General. Complications: None. Disposition: The patient tolerated the procedure in stable condition and taken to Recovery in good g eneral condition. Procedure In Detail: The patient was brought to the OR and placed in supine position. General anest hesia was begun. The patient was prepped and draped in the usual sterile fashion in the left lateral position. Marcaine 0.5% was infiltrated locally. A 15-blade was used to cut out the necrotic tissu e all over down to the subcutaneous tissue and muscle area. Curettes were used as well as scissors w ere used to debride the remainder of fibrin that could be seen. Wound irrigated, bleeding controlled with pressure, and then collagenase dressing was applied. The patient tolerated the procedure in stable condition and taken to Recovery in good general condition. WINDY/NORBERTO Voice ID: [id number] Report ID: [id number]
[2018-02-14] MEDS: ENOXAPARIN 40 MG/0.4 ML SQ SCH (17:05)
--- NOTE | 2018-02-14 18:17 | P.PN ---
Subjective Date of Service: 02/14/18 Chief Complaint: MULTIBACTERIAL CELLULITIS AND DIABETIC NECROTIC ULCER Subjective: Improving Review of Systems 10-point ROS is otherwise unremarkable General: Weakness Physical Examination - Vital Signs Temperature: 96.9 F Blood Pressure: 119/58 Pulse: 63 Respirations: 20 Pulse Ox (%): 95 - Physical Exam General: Alert, Obese HEENT: Atraumatic, PERRLA, EOMI Neck: Supple, JVD not distended Respiratory: Clear to auscultation bilaterally, Normal air movement Cardiovascular: Regular rate/rhythm, Normal S1 S2 Gastrointestinal: Normal bowel sounds, No tenderness Musculoskeletal: No tenderness Integumentary: Diabetic ulcer Neurological: Normal speech, Normal tone, Normal affect Lymphatics: No axilla or inguinal lymphadenopathy - Studies Laboratory Data (last 24 hrs) 02/14/18 05:15: Sodium 137, Potassium 4.3, BUN 27 H, Creatinine 1.37 H, Glucose 227 H, Magnesium 2.1 02/14/18 05:00: WBC 7.4, Hgb 10.9 L, Hct 33.4 L, Plt Count 176 Microbiology Data (last 24 hrs): 02/13/18 11:52 Blood - Blood Anaerobic Blood Culture - Final 02/13/18 11:47 Blood - Blood Anaerobic Blood Culture - Final 02/13/18 11:05 Wound - Right Heel Gram Stain - Final Medications List Reviewed: Yes Assessment And Plan - Current Problems (Diagnosis) (1) 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 WE CURRENTLY ARE DOING COBAN WRAPS. DAUGHTER IS THE MAIN CAREGIVER. DR SCALES DEBRIDED I AM GOING TO DC HIM AN AM WITH ZOSYN. Qualifiers: Diabetes mellitus type: type 2 Qualified Code(s): E11.621 - Type 2 diabetes mellitus with foot ulcer; L97.413 - Non-pressure chronic ulcer of right heel and midfoot with necrosis of muscle (2) Cellulitis of right leg Onset Date: 10/05/17 Current Visit: No Status: Chronic Plan: ZOSYN IV ULCER GREW 3 DIFF BACTERIA AND THINK THEY SEEM TO BE CULPRITS AND NOT CONTAMINANT THE ULCER DOES HAVE FLAIL, DARK, NECROTIC TISSUE THAT BLEEDS EASILY AND IS RELATED TO THE MORGANELLA AND PSEUDOMONAS GROWTH. 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
[2018-02-14] MEDS: NACHLORIDE 0.45% 1,000 ML IV SCH (20:20)
[2018-02-14] MEDS: ATORVASTATIN 10 MG TAB PO SCH (20:22)
[2018-02-15] MEDS: PIPER/TAZO/NS 3.375gm 3.375 GM/100 ML BAG IV SCH ×2 (03:41→12:40)
[2018-02-15 04:58] LABS: Absolute Lymphocytes (CBC) 1.3 K/uL (0.7-4.9); Absolute Monocytes 0.4 K/uL (0.1-1.3); Absolute Neutrophil 5.9 K/uL (1.8-8.0); Basophils % 0.5 % (0-1.3); Eosinophils % 3.8 % (0-4.4); Hematocrit 33.8 % (39.6-49.0); Lymphocytes % 16.6 % (15.3-44.8); MCH 28.7 pg (27.0-35.0); MCV 86.1 fL (80-100); Monocytes % 5.4 % (3.3-12.3); RBC Red Blood Cell Count 3.92 M/uL (4.33-5.43)
[2018-02-15 05:17] LABS: Magnesium 2.2 mg/dL (1.8-2.5); Potassium 4.3 mEq/L (3.6-5.0)
[2018-02-15] MEDS: INSULIN -REGULAR HUMAN 50 UNIT/0.5 ML ML SQ SCH ×2 (08:54→12:39)
[2018-02-15] MEDS: INSULIN 70/30 100 UNITS/ML SQ SCH (08:54)
[2018-02-15] MEDS: CYANOCOBALAMIN 1000MCG/ML INJ SQ SCH (08:55)
[2018-02-15] MEDS: RAMIPRIL 5 MG CAP PO SCH (08:55)
[2018-02-15] MEDS: CETIRIZINE HCL 5 MG TABLET PO SCH (08:55)
[2018-02-15] MEDS: PREGABALIN 150 MG CAP PO SCH (08:55)
[2018-02-15] MEDS: METOPROLOL TAR 50 MG TAB PO SCH (08:56)
[2018-02-15] MEDS: FUROSEMIDE 40 MG TABLET PO SCH (08:56)
[2018-02-15] MEDS: POTASSIUM CL SA 10 MEQ TAB PO SCH (08:56)
[2018-02-15 09:55] VITALS: O2SAT 96
--- NOTE | 2018-02-15 14:30 | PN ---
Subjective: The patient is awake, alert. No complaint. Objective: Vital Signs: Stable. Afebrile. Extremities: Dressing clean, dry, and intact. Laboratory Data: Cultures revealed Morganella genus and Pseudomonas genus, sensitive to multiple IV antibiotics. Assessment: Infected wound, right heel. Recommendations: Acetic acid, collagenase dressing, IV antibiotics, follow up in the Wound Healing [facility] enter. WINDY/NORBERTO Voice ID: [id number] Report ID: [id number]
[2018-02-15 17:34] VITALS: BP 130/63; TEMP 97.4
[2018-02-17 13:11] LABS: Vitamin D 1,25-Dihydroxy Total 31 pg/mL (18-72); Vitamin D,1,25-OH2, D2 <8 pg/mL
--- NOTE | 2018-03-20 13:15 | P.DS ---
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 HE HAS THIS ULCER FOR LONG DURATION. HE IS DIABETIC, WITH CHRONIC EDEMA AND HOUSE CONDITION IS POOR POSSIBLY COLONIZING MULTIPLE BACTERIA. HE HAS NO FEVER, CHEST PAIN, NAUSEA, VOMITING. MR JONES HAS HAD MULTIPLE INFECTIONS OF RIGHT LEG THAT HAS DIABETIC ULCER. HE HAS GROWN PEUDOMONAS TWICE. THIS TIME ALSO HE IS SENT HOME ON IV ZOSYN. HIS SKIN IS IN POOR CONDITION WITH CHRONIC SCALY SKIN, CHRONIC EDEMA THAT HE IS NOT ABLE TO CONTROL WITH FARROW WRAPS ALSO. HE HAS DM, HTN, AND LYPHEDEMA. HIS ULCER NEVER HEALS EVEN WITH CHRONIC WOUND THERAPY HIS EDEMA NEVER GOES AWAY. THIS IS NOT A DIURETIC DEPENDENT EDEMA BUT IT IS VENOUS CONGESTION. Vital Signs/Physical Exam: Temp Pulse Resp BP Pulse Ox 97.4 F 89 20 130/63 94 02/15/18 15:30 02/15/18 15:30 02/15/18 15:30 02/15/18 15:30 02/15/18 15:30 Laboratory Data at Discharge: WBC 8.1 K/uL (4.3-10.9) 02/15/18 04:25 Hgb 11.2 g/dL (13.6-17.9) L 02/15/18 04:25 Hct 33.8 % (39.6-49.0) L 02/15/18 04:25 Plt Count 221 K/uL (152-406) D 02/15/18 04:25 PT 12.1 SECONDS (9.5-12.5) 02/13/18 11:47 INR 1.03 02/13/18 11:47 APTT 27.2 SECONDS (24.3-36.9) 02/13/18 11:47 Sodium 136 mEq/L (135-145) 02/15/18 04:25 Potassium 4.3 mEq/L (3.6-5.0) 02/15/18 04:25 BUN 26 mg/dL (6-20) H 02/15/18 04:25 Creatinine 1.55 mg/dL (0.61-1.24) H 02/15/18 04:25 Glucose 213 mg/dL (65-120) H 02/15/18 04:25 Phosphorus 3.2 mg/dL (2.5-4.3) 02/13/18 11:47 Magnesium 2.2 mg/dL (1.8-2.5) 02/15/18 04:25 Total Bilirubin 0.8 mg/dL (0.3-1.2) 02/13/18 11:47 AST 19 IU/L (10-42) 02/13/18 11:47 ALT 16 IU/L (10-60) 02/13/18 11:47 Alkaline Phosphatase 63 IU/L (42-121) 02/13/18 11:47 Home Medications: Atorvastatin Calcium [Lipitor*] 10 mg PO BEDTIME 01/20/16 Metoprolol Tartrate [Lopressor*] 100 mg PO BID 01/20/16 Insulin Detemir [Levemir*] 130 units SQ DAILY 05/06/16 Pregabalin [Lyrica] 150 mg PO BID 05/06/16 Furosemide 40 mg PO BID 06/10/16 Potassium Chloride [Klor-Con M10] 10 meq PO DAILY 06/10/16 Levocetirizine Dihydrochloride [Xyzal] 5 mg PO DAILY 10/04/17 Insulin Detemir [Levemir*] 40 unit SQ BEDTIME 10/05/17 Acetic Acid 0.25% [Acetic Acid 0.25%*] 1,000 ml IR DAILYPRN PRN #1 btl 02/15/18 Collagenase [Santyl Ointment] 1 appl TOP DAILY #1 tube 02/15/18 Cyanocobalamin [B12 Injection] 1,000 mcg IM Q7D #4 vial 02/15/18 PIPER/TAZO/NS 3.375gm [Zosyn 3.375 gm/100 ml Ns Ivpb] 3.375 gm IV Q6H 12 Days bag 02/15/18 New Medications: Acetic Acid 0.25% [Acetic Acid 0.25%*] 1,000 ml IR DAILYPRN PRN #1 btl PRN Reason: wound care Collagenase [Santyl Ointment] 1 appl TOP DAILY #1 tube Cyanocobalamin [B12 Injection] 1,000 mcg IM Q7D #4 vial PIPER/TAZO/NS 3.375gm [Zosyn 3.375 gm/100 ml Ns Ivpb] 3.375 gm IV Q6H 12 Days bag Diet: ADA Followup: Hipolito Desai MD [Family Provider] - 1-2 Weeks (Call for appointment) Lewis Thakur MD [ACTIVE - CAN ADMIT] - 1 Week (Call for appointment)
== END 2018-02-15 15:50 | disposition home health service (06) | DRG 982 ==
LOC: 2ND 10:00
PROVIDERS: ADMIT Internal Medicine; ATTEND Internal Medicine
PROC: 02HV33Z Insertion of Infusion Device into Superior Vena Cava, Percutaneous Approach (ICD-10-PCS; 2018-02-13)
PROC: 0KBV0ZZ Excision of Right Foot Muscle, Open Approach (ICD-10-PCS; principal; 2018-02-14 11:30)
DX: E11.621 Type 2 diabetes mellitus with foot ulcer (principal); L97.413 Non-pressure chronic ulcer of right heel and midfoot with necrosis of muscle; L03.115 Cellulitis of right lower limb; B96.5 Pseudomonas (aeruginosa) (mallei) (pseudomallei) as the cause of diseases classified elsewhere; B96.89 Other specified bacterial agents as the cause of diseases classified elsewhere; N31.9 Neuromuscular dysfunction of bladder, unspecified; E11.40 Type 2 diabetes mellitus with diabetic neuropathy, unspecified; E78.00 Pure hypercholesterolemia, unspecified; I10 Essential (primary) hypertension; D64.9 Anemia, unspecified
CPT/HCPCS: 36415; 71045; 71046; 80048; 80076; 81003; 81015; 82043; 82570; 82607; 82652; 82962; 83036; 83735; 84100; 84443; 85025; 85610; 85730; 87040; 87070; 87077; 87086; 87088; 87186; 87205; 88304; 88305; 93005; 94760; J1650; J2543; J3010; J3420; J3590; J7030

== ENCOUNTER 2018-05-04 14:49 | Observation (INO) | payer OTHER ==
[2018-05-04] MEDS ORDERED: D50W 25 GM/50 ML SYRINGE IV PRN (16:41)
[2018-05-04] MEDS ORDERED: GLUCAGON 1 MG/VIAL IM PRN (16:41)
[2018-05-04 17:08] VITALS: BMI 36.5
[2018-05-04 17:19] LABS: Absolute Lymphocytes (CBC) 1.3 K/uL (0.7-4.9); Absolute Monocytes 0.4 K/uL (0.1-1.3); Absolute Neutrophil 4.5 K/uL (1.8-8.0); Basophils % 0.4 % (0-1.3); Eosinophils % 3.8 % (0-4.4); Hematocrit 30.1 % (39.6-49.0); Lymphocytes % 19.9 % (15.3-44.8); MCH 27.7 pg (27.0-35.0); MCV 84.5 fL (80-100); MPV 8.8 fL (7.6-11.3); Monocytes % 5.8 % (3.3-12.3); RBC Red Blood Cell Count 3.56 M/uL (4.33-5.43)
[2018-05-04 17:23] LABS: Protime INR 0.99
[2018-05-04] MEDS: INSULIN -REGULAR HUMAN 50 UNIT/0.5 ML ML SQ SCH ×2 (17:36→21:57)
[2018-05-04] MEDS: ENOXAPARIN 40 MG/0.4 ML SQ SCH (17:37)
--- NOTE | 2018-05-04 17:57 | P.HP ---
Certification for Inpatient Patient admitted to: Inpatient With expected LOS: >2 Midnights Practitioner: I am a practitioner with admitting privileges, knowledge of patient current condition, hospital course, and medical plan of care. Services: Services provided to patient in accordance with Admission requirements found in Title 42 Section 412.3 of the Code of Federal Regulations Patient History Date of Service: 05/04/18 Reason for admission: BOTH LEGS ARE WARM AND RED History of Present Illness: MR JONES COMES TO WOUND CENTER FOR CHRONIC EDEMA AND RIGHT HEEL ULCER. HE IS NOT HEALING. HIS EDEMA AND POOR HYGIENE KEEPS HIM WITH RECURRENT INFECTION. HE HAS HAD RESISTANT PSEUDOMONAS A FEW TIMES IN THE LEG ULCERS. HE IS DIABETIC. Allergies No Known Allergies Allergy (Verified 06/10/16 22:20) - Past Medical/Surgical History Has patient received pneumonia vaccine in the past: Yes Diabetic: Yes -: IDDM -: diabetic neuropathy. -: bilat cellulitis to legs -: bilat lens implants -: HTN -: hypercholesterolemia -: diabetic neuropathy -: Anemia -: bladder ca -: Spinal Surgery 1989 -: Right Knee Replacement 1989 -: Left ankle sx - pin in place 1994 -: Left 2nd toe sx - nikia in place -: bladder sx benign tumor removal - Family History Father -: Stroke - Social History Smoking Status: Former smoker Alcohol use: No CD- Drugs: No Caffeine use: Yes Place of Residence: Home Review of Systems 10-point ROS is otherwise unremarkable General: Weakness, Malaise Integumentary: As per HPI (ULCER HEEL.) Physical Examination - Vital Signs Temperature: 98.3 F Blood Pressure: 145/65 Pulse: 80 Respirations: 16 Pulse Ox (%): 96 - Physical Exam General: Alert, Moderate distress, Obese HEENT: Atraumatic, PERRLA, Mucous membr. moist/pink, EOMI, Sclerae nonicteric Neck: Supple, 2+ carotid pulse no bruit, No LAD, Without JVD or thyroid abnormality Respiratory: Clear to auscultation bilaterally, Normal air movement Cardiovascular: Regular rate/rhythm, Normal S1 S2 Gastrointestinal: Normal bowel sounds, No tenderness Musculoskeletal: No tenderness Integumentary: Diabetic ulcer, Other (JACOB LEGS ERYTHEMA. RAISED TEMPERATURE. WHOLE LEGS ARE COVERED.) Neurological: Normal gait, Normal speech, Normal strength at 5/5 x4 extr, Normal tone, Normal affect Lymphatics: No axilla or inguinal lymphadenopathy - Studies Laboratory Data (last 24 hrs) 05/04/18 16:44: PT 11.7, INR 0.99, APTT 30.8 05/04/18 16:44: WBC 6.4, Hgb 9.9 L, Hct 30.1 L, Plt Count 179 Assessment and Plan - Problems (Diagnosis) (1) Pseudomonas aeruginosa infection Current Visit: Yes Status: Acute Plan: IV ZOSYN THIS IS RECURRENT HE HAS POOR HYGIENE OF SKIN, SKIN CONDITION IS POOR ITSELF AND HE IS DIABETIC PICC LINE DC ON WEDNESDAY. HIS 'S IS ON WEDNESDAY. (2) Diabetes mellitus Current Visit: No Status: Chronic (3) Lymphedema Current Visit: No Status: Chronic - Advance Directives Does patient have a Living Will: Yes Does patient have a Durable POA for Healthcare: Yes
[2018-05-04] MEDS ORDERED: PNEUMOCOCCAL VACCINE 0.5 ML IMVAC ONE (18:00)
[2018-05-04] MEDS ORDERED: ONDANSETRON 4 MG (ODT) TAB PO PRN (18:00)
[2018-05-04] MEDS ORDERED: ONDANSETRON 4 MG/2 ML VIAL IV PRN (18:00)
[2018-05-04] MEDS ORDERED: ACETAMINOPHEN 325 MG TABLET PO PRN (18:00)
[2018-05-04] MEDS ORDERED: DIPHENHYDRAMINE 25 MG TAB/CAP PO PRN (18:00)
[2018-05-04] MEDS ORDERED: POLYETHYL GLY 3350 17 GM/DOSE PO PRN (18:00)
[2018-05-04] MEDS ORDERED: LOPERAMIDE HCL 2 MG CAPSULE PO PRN (18:00)
[2018-05-04 18:01] LABS: Albumin 2.7 g/dL (3.4-5.0); Bilirubin Direct 0.2 mg/dL (0-0.2); Bilirubin Total 0.4 mg/dL (0.2-1.0); Magnesium 2.2 mg/dL (1.8-2.4); Protein, Total 6.7 g/dL (6.4-8.2); Thyroid Stimulating Hormone 3.43 uIU/mL (0.36-3.74)
--- NOTE | 2018-05-04 21:07 | RAD REPORT ---
EXAM DESCRIPTION: RAD - Chest Pa And Lat (2 Views) - 05/04/2018 8:47 pm CLINICAL HISTORY: cellulitis<Reason For Exam>cellulitis Shortness of breath COMPARISON: Chest Single View dated 02/13/2018; Chest Pa And Lat (2 Views) dated 02/13/2018; Chest Sin gle View dated 12/04/2017; Chest Single View dated 12/03/2017<Comparisons> TECHNIQUE: PA and lateral views of the chest were obtained. FINDINGS: The lungs are normal volume. Elevated left hemidiaphragm again noted. Acute infiltrate is not seen. Trachea is midline. Lung parenchyma is similar to comparison. Heart size is normal and ce ntral vasculature is within normal limits. No pleural effusion or pneumothorax seen. No acute bony finding noted. No aortic abnormality. IMPRESSION: No failure, infiltrate or acute cardiopulmonary finding. Above detailed findings are similar to comparison.
[2018-05-04] MEDS: PIPER/TAZO/NS 2.25gm 2.25 GM/50 ML BAG IVPB SCH (21:57)
[2018-05-04] MEDS: NACHLORIDE 0.45% 1,000 ML IV SCH (21:58)
[2018-05-04 23:19] LABS: Urine Appearance CLOUDY; Urine Bilirubin NEGATIVE (NEG); Urine Blood NEGATIVE (NEG); Urine Color YELLOW; Urine Glucose TRACE (NEG); Urine Protein 1+ (NEG)
[2018-05-04 23:45] LABS: Urine Microscopic Reflex ORDER UMIC
[2018-05-05 00:18] LABS: Urine Culture Reflex Order NOT NEEDED
[2018-05-05] MEDS: PIPER/TAZO/NS 2.25gm 2.25 GM/50 ML BAG IVPB SCH ×4 (00:27→17:46)
[2018-05-05 00:36] LABS: Urine Bacteria >50 /HPF (NONE SEEN); Urine RBC <5 /HPF (NONE SEEN)
[2018-05-05 05:57] LABS: Magnesium 2.2 mg/dL (1.8-2.4); Potassium 4.7 mmol/L (3.5-5.1)
[2018-05-05] MEDS ORDERED: DOCUSATE NA 100 MG CAP PO PRN (06:21)
[2018-05-05] MEDS ORDERED: FAMOTIDINE 20 MG TAB PO PRN (07:00)
--- NOTE | 2018-05-05 07:06 | EKG ---
Test Date: 2018-05-04 Test Time: 17:24:54 [employer]ler: SRINI MEASUREMENT RESULTS: Intervals: Rate: 81 TN: 210 QRSD: 96 QT: 388 QTc: 450 [place]: P: 67 TN: 210 QRS: 264 T: 0 INTERPRETIVE STATEMENTS: Sinus rhythm with 1st degree AV block Inferior infarct, age undetermined Anterolateral infarct, age undetermined Abnormal ECG Compared to ECG 02/13/2018 11:52:36 No significant changes Electronically Signed On 05-05-18 07:05:22 CDT by Paulie Alford
[2018-05-05] MEDS ORDERED: D50W 25 GM/50 ML SYRINGE IV PRN (07:24)
[2018-05-05] MEDS ORDERED: GLUCAGON 1 MG/VIAL IM PRN (07:24)
[2018-05-05] MEDS: INSULIN -REGULAR HUMAN 50 UNIT/0.5 ML ML SQ SCH ×4 (07:30→21:00)
[2018-05-05] MEDS ORDERED: INSULIN DETEMIR 120 UNIT SQ SCH (07:45)
[2018-05-05] MEDS: INSULIN GLARGINE 100 UNITS/ML SQ SCH (08:00)
[2018-05-05] MEDS: FUROSEMIDE 40 MG TABLET PO SCH (08:44)
[2018-05-05] MEDS: PREGABALIN 75 MG CAP PO SCH ×2 (08:45→21:49)
[2018-05-05] MEDS: ENOXAPARIN 40 MG/0.4 ML SQ SCH (08:45)
[2018-05-05] MEDS: CETIRIZINE HCL 5 MG TABLET PO SCH (08:45)
[2018-05-05] MEDS: METOPROLOL TAR 50 MG TAB PO SCH ×2 (08:45→21:49)
[2018-05-05] MEDS: POTASSIUM CL SA 10 MEQ TAB PO SCH (08:46)
[2018-05-05] MEDS: COLLAGENASE 30 GM OINTMENT TOP SCH (09:00)
[2018-05-05] MEDS: ALBUTEROL INHALER 60 PUFF/8 GM IH SCH (09:00)
--- NOTE | 2018-05-05 15:21 | RAD REPORT ---
EXAM DESCRIPTION: RAD - Chest Single View - 05/05/2018 3:15 pm CLINICAL HISTORY: Picc line placement COMPARISON: Chest Pa And Lat (2 Views) dated 05/04/2018; Chest Single View dated 02/13/2018; Chest Pa And Lat (2 Views) dated 02/13/2018; Chest Single View dated 12/04/2017 FINDINGS: Portable chest was obtained following placement of a right upper extremity PICC line. The catheter tip projects over the SVC..
[2018-05-05] MEDS ORDERED: INSULIN GLARGINE 100 UNITS/ML SQ SCH (20:30)
[2018-05-05] MEDS ORDERED: ATORVASTATIN 10 MG TAB PO SCH (21:00)
[2018-05-05] MEDS: JUVEN PACKET PO SCH (21:59)
--- NOTE | 2018-05-05 22:06 | P.PN ---
Subjective Date of Service: 05/05/18 Chief Complaint: BOTH LEGS ARE WARM AND RED Subjective: Improving (NO PAIN,NO FEVER) Review of Systems 10-point ROS is otherwise unremarkable Physical Examination - Vital Signs Temperature: 97.8 F Blood Pressure: 125/59 Pulse: 66 Respirations: 18 Pulse Ox (%): 98 - Physical Exam General: Alert, In no apparent distress, Obese HEENT: Atraumatic, PERRLA, EOMI Neck: Supple, JVD not distended Respiratory: Clear to auscultation bilaterally, Normal air movement Cardiovascular: Regular rate/rhythm, Normal S1 S2 Gastrointestinal: Normal bowel sounds, No tenderness Musculoskeletal: No tenderness Integumentary: No rashes, Other (BILAT LEGS, CELLULITIS MODERATE , R HEEL ULCER CHR.) Neurological: Normal speech, Normal tone, Normal affect Lymphatics: No axilla or inguinal lymphadenopathy - Studies Laboratory Data (last 24 hrs) 05/05/18 04:51: Sodium 138, Potassium 4.7, BUN 26 H, Creatinine 1.40 H, Glucose 195 H, Magnesium 2.2 Medications List Reviewed: Yes Assessment And Plan - Current Problems (Diagnosis) (1) Pseudomonas aeruginosa infection Current Visit: Yes Status: Acute Plan: IV ZOSYN THIS IS RECURRENT HE HAS POOR HYGIENE OF SKIN, SKIN CONDITION IS POOR ITSELF AND HE IS DIABETIC PICC LINE DC ON WEDNESDAY. HIS 'S IS ON WEDNESDAY. IV ABX IV ZOSYN DC IN AM IF STABLE. (2) Diabetes mellitus Current Visit: No Status: Chronic (3) Lymphedema Current Visit: No Status: Chronic
[2018-05-05 22:12] VITALS: O2SAT 93
[2018-05-06] MEDS: PIPER/TAZO/NS 2.25gm 2.25 GM/50 ML BAG IVPB SCH ×3 (00:56→08:22)
[2018-05-06] MEDS: NACHLORIDE 0.45% 1,000 ML IV SCH (03:20)
[2018-05-06 04:19] VITALS: TEMP 96.8
[2018-05-06 05:46] LABS: Magnesium 2.4 mg/dL (1.8-2.4); Potassium 4.3 mmol/L (3.5-5.1)
[2018-05-06] MEDS: INSULIN -REGULAR HUMAN 50 UNIT/0.5 ML ML SQ SCH (07:30)
[2018-05-06] MEDS: INSULIN GLARGINE 100 UNITS/ML SQ SCH (08:00)
[2018-05-06] MEDS: ENOXAPARIN 40 MG/0.4 ML SQ SCH (08:23)
[2018-05-06] MEDS: CETIRIZINE HCL 5 MG TABLET PO SCH (08:23)
[2018-05-06] MEDS: FUROSEMIDE 40 MG TABLET PO SCH (08:24)
[2018-05-06] MEDS: POTASSIUM CL SA 10 MEQ TAB PO SCH (08:24)
[2018-05-06] MEDS: PREGABALIN 75 MG CAP PO SCH (08:24)
[2018-05-06] MEDS: METOPROLOL TAR 50 MG TAB PO SCH (08:24)
[2018-05-06] MEDS: JUVEN PACKET PO SCH (08:25)
[2018-05-06 08:26] VITALS: BP 135/65
[2018-05-06] MEDS: COLLAGENASE 30 GM OINTMENT TOP SCH (09:00)
[2018-05-06] MEDS: ALBUTEROL INHALER 60 PUFF/8 GM IH SCH (09:00)
--- NOTE | 2018-05-06 16:53 | P.DS ---
Admission Date: 05/04/18 Discharge Date: 05/06/18 Disposition: ROUTINE DISCHARGE Discharge Condition: SERIOUS Reason for Admission: BOTH LEGS ARE WARM AND RED - Problems (1) Pseudomonas aeruginosa infection Onset Date: 05/06/18 Status: Acute (2) Diabetes mellitus Status: Chronic (3) Lymphedema Status: Chronic Brief History of Present Illness: MR JONES COMES TO WOUND CENTER FOR CHRONIC EDEMA AND RIGHT HEEL ULCER. HE IS NOT HEALING. HIS EDEMA AND POOR HYGIENE KEEPS HIM WITH RECURRENT INFECTION. HE HAS HAD RESISTANT PSEUDOMONAS A FEW TIMES IN THE LEG ULCERS. HE IS DIABETIC. MR. JONES HAS IMPROVED WELL. HIS ERYTHEMA ON BOTH LEGS HAS IMPROVED DOWN TO HIS BASELINE EDEMA. HE IS DISCHAGED WITH HOME IV ZOSYN FOR 10 DAYS. HE HAS TO ATTEND HIS 'S TODAY. Vital Signs/Physical Exam: Temp Pulse Resp BP Pulse Ox 96.8 F 68 18 135/65 90 L 05/06/18 04:00 05/06/18 08:24 05/06/18 04:00 05/06/18 08:24 05/06/18 04:00 Laboratory Data at Discharge: WBC 6.4 K/uL (4.3-10.9) 05/04/18 16:44 Hgb 9.9 g/dL (13.6-17.9) L 05/04/18 16:44 Hct 30.1 % (39.6-49.0) L 05/04/18 16:44 Plt Count 179 K/uL (152-406) 05/04/18 16:44 PT 11.7 SECONDS (9.5-12.5) 05/04/18 16:44 INR 0.99 05/04/18 16:44 APTT 30.8 SECONDS (24.3-36.9) 05/04/18 16:44 Sodium 138 mmol/L (136-145) 05/06/18 04:58 Potassium 4.3 mmol/L (3.5-5.1) 05/06/18 04:58 BUN 31 mg/dL (7-18) H 05/06/18 04:58 Creatinine 1.50 mg/dL (0.55-1.3) H 05/06/18 04:58 Glucose 133 mg/dL (74-106) H 05/06/18 04:58 Phosphorus 3.0 mg/dL (2.5-4.9) 05/04/18 16:44 Magnesium 2.4 mg/dL (1.8-2.4) 05/06/18 04:58 Total Bilirubin 0.4 mg/dL (0.2-1.0) 05/04/18 16:44 AST 18 U/L (15-37) 05/04/18 16:44 ALT 21 U/L (12-78) 05/04/18 16:44 Alkaline Phosphatase 70 U/L (45-117) 05/04/18 16:44 Home Medications: Albuterol Inhaler [Ventolin Inhaler*] 1 puff IH DAILY 05/04/18 Atorvastatin Calcium [Lipitor*] 10 mg PO BEDTIME 05/04/18 Cephalexin [Keflex*] 500 mg PO DAILY 05/04/18 Collagenase [Santyl Ointment*] 1 mana TOP DAILY 05/04/18 D-Methorphan Hb/Prometh HCl [Promethazine-Dm Syrup] 5 ml PO Q6H PRN 05/04/18 Docusate Sodium [Stool Softener] 100 mg PO DAILY PRN 05/04/18 Famotidine 10 mg PO BID PRN 05/04/18 Furosemide [Lasix] 40 mg PO DAILY 05/04/18 Insulin Detemir [Levemir Flextouch] 40 units SQ 30 MIN BEFORE HS 05/04/18 Levocetirizine Dihydrochloride [Xyzal] 5 mg PO DAILY 05/04/18 Metoprolol Tartrate [Lopressor] 100 mg PO BID 05/04/18 Potassium Chloride [Klor-Con 10] 10 meq PO DAILY 05/04/18 Pregabalin [Lyrica] 75 mg PO BID 05/04/18 Insulin Detemir [Levemir Flextouch] 120 units SQ BREAKFAST 05/05/18 PIPER/TAZO/NS 2.25gm [Zosyn 2.25 gm/50 ml Ns Ivpb] 2.25 gm IV Q6H 10 Days bag 05/06/18 New Medications: PIPER/TAZO/NS 2.25gm [Zosyn 2.25 gm/50 ml Ns Ivpb] 2.25 gm IV Q6H 10 Days bag Patient Discharge Instructions: NO CHANGES IN HOME MEDICATIONS. Diet: ADA Activity: Fall precautions Followup: Hipolito Desai MD [Primary Care Provider] - 1-2 Weeks
[2018-05-08 13:18] LABS: Vitamin D 1,25-Dihydroxy Total 33 pg/mL (18-72); Vitamin D,1,25-OH2, D2 <8 pg/mL
== END 2018-05-06 09:15 | disposition home health service (06) ==
LOC: 2ND 15:57
PROVIDERS: ADMIT Internal Medicine; ATTEND Internal Medicine
PROC: 02HV33Z Insertion of Infusion Device into Superior Vena Cava, Percutaneous Approach (ICD-10-PCS; principal; 2018-05-05)
DX: L03.116 Cellulitis of left lower limb (principal); L03.115 Cellulitis of right lower limb; B96.5 Pseudomonas (aeruginosa) (mallei) (pseudomallei) as the cause of diseases classified elsewhere; E11.621 Type 2 diabetes mellitus with foot ulcer; L97.419 Non-pressure chronic ulcer of right heel and midfoot with unspecified severity; E66.9 Obesity, unspecified; Z68.35 Body mass index [BMI] 35.0-35.9, adult; I89.0 Lymphedema, not elsewhere classified; Z96.651 Presence of right artificial knee joint; Z85.51 Personal history of malignant neoplasm of bladder
CPT/HCPCS: 36415 ×2; 36569; 71045; 71046; 80048 ×2; 80076; 82607; 82652; 82962 ×7; 83036; 83735 ×3; 84100; 84443; 85025; 85610; 85730; 87040 ×2; 87077 ×2; 87086; 87088; 87186 ×2; 93005; G0378; G0379; J1650 ×3; 11042; 81003; 81015; J3590

== ENCOUNTER 2019-05-28 08:04 | Emergency (ER) | payer OTHER ==
--- NOTE | 2019-05-28 08:42 | EDPHYS ---
Physician Documentation [facility] Name: Derrick De La Cruz Age: 84 yrs Sex: Male : 1935 Arrival Date: 05/28/2019 Time: 08:07 Bed 7 Private MD: Hipolito Desai V ED Physician Ariela Vinson HPI: 05/28 08:34 This 84 yrs old Male presents to ER via Wheelchair with complaints of Problem kb With Urinary Catheter. 08:34 The patient presents with a Lazar catheter problem, is leaking urine. Onset: The kb symptoms/episode began/occurred this morning. Modifying factors: The symptoms are alleviated by nothing, the symptoms are aggravated by nothing. Associated signs and symptoms: The patient has no apparent associated signs or symptoms. Severity of symptoms: At their worst the symptoms were mild, in the emergency department the symptoms are unchanged. The patient has experienced similar episodes in the past. The patient has not recently seen a physician. Pt reports his catheter started leaking this morning. States this happens periodically and he has to have it changed out. Reports he called Dr Beard's nurse and she normally meets them at the office to change it out, but she is out of town so they had to come to the ER. . Historical: - Allergies: 08:18 No Known Allergies; aa5 - PMHx: 08:18 Diabetes - IDDM; Hypertension; Lymphadema; aa5 - PSHx: 08:18 back sx; R knee replacement; aa5 - Immunization history:: Adult Immunizations up to date. - Ebola Screening: : No symptoms or risks identified at this time. - Social history:: Smoking status: Patient/guardian denies using tobacco. ROS: 08:34 Constitutional: Negative for fever, chills, and weight loss, Neck: Negative for injury, kb pain, and swelling, Cardiovascular: Negative for chest pain, palpitations, and edema, Respiratory: Negative for shortness of breath, cough, wheezing, and pleuritic chest pain, Abdomen/GI: Negative for abdominal pain, nausea, vomiting, diarrhea, and constipation, MS/Extremity: Negative for injury and deformity, Skin: Negative for injury, rash, and discoloration, Neuro: Negative for headache, weakness, numbness, tingling, and seizure. 08:34 : Positive for leaking catheter. Exam: 08:36 Constitutional: This is a well developed, well nourished patient who is awake, alert, kb and in no acute distress. Head/Face: Normocephalic, atraumatic. Neck: Trachea midline, no thyromegaly or masses palpated, and no cervical lymphadenopathy. Supple, full range of motion without nuchal rigidity, or vertebral point tenderness. No Meningismus. Chest/axilla: Normal chest wall appearance and motion. Nontender with no deformity. No lesions are appreciated. Cardiovascular: Regular rate and rhythm with a normal S1 and S2. No gallops, murmurs, or rubs. Normal PMI, no JVD. No pulse deficits. Respiratory: Lungs have equal breath sounds bilaterally, clear to auscultation and percussion. No rales, rhonchi or wheezes noted. No increased work of breathing, no retractions or nasal flaring. Abdomen/GI: Soft, non-tender, with normal bowel sounds. No distension or tympany. No guarding or rebound. No evidence of tenderness throughout. Back: No spinal tenderness. No costovertebral tenderness. Full range of motion. Skin: Warm, dry with normal turgor. Normal color with no rashes, no lesions, and no evidence of cellulitis. MS/ Extremity: Pulses equal, no cyanosis. Neurovascular intact. Full, normal range of motion. Neuro: Awake and alert, GCS 15, oriented to person, place, time, and situation. Cranial nerves II-XII grossly intact. Motor strength 5/5 in all extremities. Sensory grossly intact. Cerebellar exam normal. Normal gait. 08:36 : a lazar is noted, to gravity drainage. Vital Signs: 08:25 BP 142 / 46; Pulse 62; Resp 17; Temp 97.3; Pulse Ox 100% ; bp 09:06 BP 137 / 54; Pulse 71; Resp 16; Temp 97.5; Pulse Ox 100% ; bp MDM: 08:31 Patient medically screened. kb 08:34 Data reviewed: vital signs, nurses notes. Data interpreted: Pulse oximetry: on room air kb is 100 %. Interpretation: normal. Counseling: I had a detailed discussion with the patient and/or guardian regarding: the historical points, exam findings, and any diagnostic results supporting the discharge/admit diagnosis, the need for outpatient follow up, a urologist, to return to the emergency department if symptoms worsen or persist or if there are any questions or concerns that arise at home. 05/28 08:59 Order name: Urine Dipstick--Ancillary (enter results) eb 05/28 09:00 Order name: Urine Culture bp 05/28 08:33 Order name: Lazar: replace lazar; Complete Time: 08:50 kb 05/28 08:33 Order name: Urine Dipstick-Ancillary (obtain specimen); Complete Time: 09:00 kb 05/28 09:00 Order name: Urine Microscopic Only bp Administered Medications: No medications were administered Disposition: 09:45 Co-signature as Attending Physician, Ariela Vinson MD. ma2 Disposition: 05/28/19 08:40 Discharged to Home. Impression: Encounter for fitting and adjustment of urinary device. - Condition is Stable. - Discharge Instructions: Lazar Catheter Care, Adult, [id number]. - Medication Reconciliation Form, Thank You Letter, Antibiotic Education, Prescription Opioid Use form. - Follow up: Emergency Department; When: As needed; Reason: Worsening of condition. Follow up: Private Physician; When: 2 - 3 days; Reason: Recheck today's complaints, Continuance of care, Re-evaluation by your physician. Signatures: Dispatcher [employer] Haritha Curiel, AKASH-Rene BUSTOS-Bhargavi Beasley, RN RN aa5 Timmy Santana RN RN bp Alzahri, Mohammad, MD MD ma2 Corrections: (The following items were deleted from the chart) 09:15 08:40 05/28/2019 08:40 Discharged to Home. Impression: Encounter for fitting and bp adjustment of urinary device. Condition is Stable. Forms are Medication Reconciliation Form, Thank You Letter, Antibiotic Education, Prescription Opioid Use. Follow up: Emergency Department; When: As needed; Reason: Worsening of condition. Follow up: Private Physician; When: 2 - 3 days; Reason: Recheck today's complaints, Continuance of care, Re-evaluation by your physician. kb
--- NOTE | 2019-05-28 08:42 | ER ---
Nurse's Notes [facility] Name: Derrick De La Cruz Age: 84 yrs Sex: Male : 1935 Arrival Date: 05/28/2019 Time: 08:07 Bed 7 Private MD: Hipolito Desai V Diagnosis: Encounter for fitting and adjustment of urinary device Presentation: 05/28 08:17 Presenting complaint: Patient states: "my snyder catheter is leaking around it and we aa5 tried flushing it but it's not working". Pt states "every time this happens they just replace the snyder". Pt reports he's had the snyder for "years" and was replaced about [address] Beard's office. 08:17 Transition of care: patient was not received from another setting of care. Onset of aa5 symptoms was May 28, 2019. Risk Assessment: Do you want to hurt yourself or someone else? Patient reports no desire to harm self or others. Care prior to arrival: None. 08:17 Acuity: BERTHA 4 aa5 08:17 Method Of Arrival: Wheelchair aa5 09:15 Initial Sepsis Screen: Does the patient meet any 2 criteria? No. Patient's initial bp sepsis screen is negative. Does the patient have a suspected source of infection? No. Patient's initial sepsis screen is negative. Triage Assessment: 08:20 General: Appears in no apparent distress. comfortable, Behavior is calm, cooperative, bp appropriate for age. Pain: Denies pain. EENT: No deficits noted. Neuro: No deficits noted. Cardiovascular: No deficits noted. Respiratory: No deficits noted. GI: No signs and/or symptoms were reported involving the gastrointestinal system. : Snyder in place to gravity drainage. Derm: No deficits noted. Musculoskeletal: No deficits noted. Historical: - Allergies: 08:18 No Known Allergies; aa5 - PMHx: 08:18 Diabetes - IDDM; Hypertension; Lymphadema; aa5 - PSHx: 08:18 back sx; R knee replacement; aa5 - Immunization history:: Adult Immunizations up to date. - Ebola Screening: : No symptoms or risks identified at this time. - Social history:: Smoking status: Patient/guardian denies using tobacco. Screenin:27 Abuse screen: Denies threats or abuse. Denies injuries from another. Nutritional bp screening: No deficits noted. Tuberculosis screening: No symptoms or risk factors identified. Fall Risk None identified. Assessment: 08:20 General: SEE TRIAGE NOTE. bp 09:14 Reassessment: PT D/C HOME VIA W/C WITH FAMILY, SNYDER IN PLACE. bp Vital Signs: 08:25 BP 142 / 46; Pulse 62; Resp 17; Temp 97.3; Pulse Ox 100% ; bp 09:06 BP 137 / 54; Pulse 71; Resp 16; Temp 97.5; Pulse Ox 100% ; bp ED Course: 08:07 Patient arrived in ED. mr 08:07 Hipolito Desai MD is Private Physician. mr 08:17 Arm band placed on Patient placed in an exam room, on a stretcher. aa5 08:20 Timmy Santana, RN is Primary Nurse. bp 08:27 Patient has correct armband on for positive identification. Bed in low position. Call bp light in reach. Side rails up X2. Adult w/ patient. 08:28 Triage completed. aa5 08:31 Haritha Pa F[facility]-C [facility]. kb 08:31 Ariela Vinson MD is Attending Physician. kb 08:45 Snyder cath inserted, using sterile technique, 20 Fr., by ri, balloon inflated, to bp gravity drainage, urine specimen collected. 09:15 No provider procedures requiring assistance completed. Patient did not have IV access bp during this emergency room visit. Administered Medications: No medications were administered Outcome: 08:40 Discharge ordered by MD. kb 09:14 Discharged to home via wheelchair, with family. bp 09:14 Condition: stable 09:14 Discharge instructions given to patient, Instructed on discharge instructions, follow up and referral plans. Demonstrated understanding of instructions, follow-up care. 09:15 Patient left the ED. bp Signatures: Hraitha Pa FNP-C FNP-Brien Belgica ClarkeBhargavi, RN RN aa5 Timmy Santana, RN RN bp
[2019-05-28 09:25] VITALS: O2SAT 100
[2019-05-28 09:26] VITALS: BP 137/54; TEMP 97.5
[2019-05-28 11:00] LABS: Urine Bacteria 20-50 /HPF (NONE SEEN)
[2019-05-28 11:01] LABS: Urine Culture Reflex Order NOT NEEDED
[2019-05-28 11:18] LABS: Urine Blood TRACE (NEG); Urine Glucose NEGATIVE (NEG); Urine Protein NEGATIVE (NEG); Urine Specific Gravity 1.015 (1.005-1.030); Urine pH 6.5 (5.0-7.0)
== END 2019-05-28 09:15 | disposition home or self-care (01) ==
LOC: ER 08:04
DX: Z46.6 Encounter for fitting and adjustment of urinary device (principal)
CPT/HCPCS: 51702; 81003; 81015; 87077; 87086; 87088; 87186; 99284

== ENCOUNTER 2019-09-23 | Emergency (ER) | payer OTHER ==
--- NOTE | 2019-09-23 09:58 | ER ---
Nurse's Notes [facility] Name: Derrick De La Cruz Age: 84 yrs Sex: Male : 1935 Arrival Date: 09/23/2019 Time: 08:10 Bed 16 Private MD: Hipolito Desai V Diagnosis: Retention of urine Presentation: 09/23 08:32 Presenting complaint: states: pt needs lazar changed out, normally goes to Dr. olesya eBard but nurse was not available, hx of bladder cancer, urinary retention since midnight, uses size 20 lazar. Transition of care: patient was not received from another setting of care. Onset of symptoms was September 23, 2019. Risk Assessment: Do you want to hurt yourself or someone else? Patient reports no desire to harm self or others. Initial Sepsis Screen: Does the patient meet any 2 criteria? No. Patient's initial sepsis screen is negative. Does the patient have a suspected source of infection? No. Patient's initial sepsis screen is negative. Care prior to arrival: None. 08:32 Method Of Arrival: Wheelchair iw 08:32 Acuity: BERTHA 3 iw Historical: - Allergies: 08:35 No Known Allergies; iw - Home Meds: 08:35 allopurinol 300 mg Oral tab 1 tab once daily [Active]; furosemide 40 mg Oral tab 1 tab iw once daily [Active]; Klor-Con 10 meq Oral once daily [Active]; Levemir 100 unit/mL subcutaneous soln 55 unit daily [Active]; Lipitor 10 mg Oral tab 1 tab once daily [Active]; Lyrica Oral 1 cap 2 times per day [Active]; Metanx (algal oil) 3 mg-35 mg-2 mg -90.314 mg Oral cap daily [Active]; metoprolol tartrate 100 mg Oral tab 1 tab 2 times per day [Active]; Novolog 100 unit/mL Sub-Q soln 10 unit before each meal [Active]; Ventolin HFA 90 mcg/actuation Nebulizer HFAA 1 puff every 4-6 hours [Active]; - PMHx: 08:35 Diabetes - IDDM; Hypertension; Lymphadema; iw - PSHx: 08:35 back sx; R knee replacement; iw - Immunization history:: Adult Immunizations not up to date. - Social history:: Smoking status: Patient denies any tobacco usage or history of. - Ebola Screening: : Patient negative for fever greater than or equal to 101.5 degrees Fahrenheit, and additional compatible Ebola Virus Disease symptoms Patient denies exposure to infectious person Patient denies travel to an Ebola-affected area in the 21 days before illness onset No symptoms or risks identified at this time. Screenin:55 Abuse screen: Denies threats or abuse. Denies injuries from another. Nutritional jl7 screening: No deficits noted. Tuberculosis screening: No symptoms or risk factors identified. Fall Risk None identified. Assessment: 09:55 General: Appears in no apparent distress. uncomfortable, Behavior is calm, cooperative, jl7 appropriate for age. Pain: Denies pain. Neuro: Level of Consciousness is awake, alert, obeys commands, Oriented to person, place, time, situation. Cardiovascular: Patient's skin is warm and dry. Respiratory: Airway is patent Respiratory effort is even, unlabored, Respiratory pattern is regular, symmetrical. : Reports clogged lazar. Derm: Skin is pink, warm \T\ dry. Vital Signs: 08:36 BP 138 / 78; Pulse 61; Resp 16; Temp 97.5; Pulse Ox 97% on R/A; Weight 122.47 kg; iw Height 6 ft. 4 in. (193.04 cm); Pain 0/10; 08:36 Body Mass Index 32.87 (122.47 kg, 193.04 cm) iw ED Course: 08:10 Patient arrived in ED. mr 08:11 Hipolito Desai MD is Private Physician. mr 08:33 Brando Lerner FNP-C is [facility]. la1 08:33 Ariela Vinson MD is Attending Physician. la1 08:34 Triage completed. iw 08:36 Arm band placed on. iw 08:43 Amarilis Rowan RN is Primary Nurse. jl7 09:35 Lazar cath removed intact, balloon deflated. jl7 09:45 Lazar cath inserted, using sterile technique, 20 Fr., by ut, balloon inflated, to jl7 gravity drainage, returned wild urine. Patient tolerated well. 09:55 Patient has correct armband on for positive identification. Bed in low position. Call jl7 light in reach. Side rails up X 1. 09:57 No provider procedures requiring assistance completed. Patient did not have IV access jl7 during this emergency room visit. Administered Medications: No medications were administered Outcome: :58 Discharge ordered by . conner 10:19 Discharged to home via wheelchair, with family. jl7 10:19 Condition: stable 10:19 Discharge instructions given to patient, family, Instructed on discharge instructions, follow up and referral plans. Demonstrated understanding of instructions, follow-up care. 10:19 Patient left the ED. jl7 Signatures: Belgica Clarke Irene, RN RN iw Brando Lerner, MANIFOLD BUILDER-C MANIFOLD BUILDER-Cla1 Amarilis Rowan RN RN josh7
--- NOTE | 2019-09-23 09:59 | EDPHYS ---
Physician Documentation [facility] Name: Derrick De La Cruz Age: 84 yrs Sex: Male : 1935 Arrival Date: 09/23/2019 Time: 08:10 Bed 16 Private MD: Hipolito Desai V ED Physician Ariela Vinson HPI: 09/23 09:42 This 84 yrs old Male presents to ER via Wheelchair with complaints of Problem la1 With Urinary Catheter. 09:42 The patient presents with a Lazar catheter problem, is not draining. Onset: The la1 symptoms/episode began/occurred this morning. Modifying factors: The symptoms are alleviated by nothing, the symptoms are aggravated by nothing. Associated signs and symptoms: Pertinent positives: abdominal pain. Severity of symptoms: At their worst the symptoms were mild. The patient has experienced similar episodes in the past. Pt has lazar and has it changed in the office but they were unable to get in to the office and he is unable to pass urine, attempted to flush at home without relief.. Historical: - Allergies: 08:35 No Known Allergies; iw - Home Meds: 08:35 allopurinol 300 mg Oral tab 1 tab once daily [Active]; furosemide 40 mg Oral tab 1 tab iw once daily [Active]; Klor-Con 10 meq Oral once daily [Active]; Levemir 100 unit/mL subcutaneous soln 55 unit daily [Active]; Lipitor 10 mg Oral tab 1 tab once daily [Active]; Lyrica Oral 1 cap 2 times per day [Active]; Metanx (algal oil) 3 mg-35 mg-2 mg -90.314 mg Oral cap daily [Active]; metoprolol tartrate 100 mg Oral tab 1 tab 2 times per day [Active]; Novolog 100 unit/mL Sub-Q soln 10 unit before each meal [Active]; Ventolin HFA 90 mcg/actuation Nebulizer HFAA 1 puff every 4-6 hours [Active]; - PMHx: 08:35 Diabetes - IDDM; Hypertension; Lymphadema; iw - PSHx: 08:35 back sx; R knee replacement; iw - Immunization history:: Adult Immunizations not up to date. - Social history:: Smoking status: Patient denies any tobacco usage or history of. - Ebola Screening: : Patient negative for fever greater than or equal to 101.5 degrees Fahrenheit, and additional compatible Ebola Virus Disease symptoms Patient denies exposure to infectious person Patient denies travel to an Ebola-affected area in the 21 days before illness onset No symptoms or risks identified at this time. ROS: 09:43 Constitutional: Negative for fever, chills, and weight loss, Eyes: Negative for injury, la1 pain, redness, and discharge, ENT: Negative for injury, pain, and discharge, Neck: Negative for injury, pain, and swelling, Cardiovascular: Negative for chest pain, palpitations, and edema, Respiratory: Negative for shortness of breath, cough, wheezing, and pleuritic chest pain, Abdomen/GI: Negative for abdominal pain, nausea, vomiting, diarrhea, and constipation, Back: Negative for injury and pain. 09:48 : Positive for urinary retention. la1 Exam: 09:47 Constitutional: This is a well developed, well nourished patient who is awake, alert, la1 and in no acute distress. Eyes: Pupils equal round and reactive to light, extra-ocular motions intact. . Periorbital areas with no swelling, redness, or edema. ENT: Mucous membranes moist. Neck: . No Meningismus. Chest/axilla: Normal chest wall appearance and motion. Nontender with no deformity. No lesions are appreciated. Cardiovascular: Normal PMI, no JVD. No pulse deficits. Respiratory: . No increased work of breathing Abdomen/GI: Soft, non-tender, with normal bowel sounds. No guarding or rebound. 09:47 Neuro: Awake and alert, GCS 15, oriented to person, place, time, and situation. 09:47 : a lazar is noted, to gravity drainage, urine is clear. Vital Signs: 08:36 BP 138 / 78; Pulse 61; Resp 16; Temp 97.5; Pulse Ox 97% on R/A; Weight 122.47 kg; iw Height 6 ft. 4 in. (193.04 cm); Pain 0/10; 08:36 Body Mass Index 32.87 (122.47 kg, 193.04 cm) iw MDM: 08:33 Patient medically screened. la1 09:56 Data reviewed: vital signs, nurses notes, and as a result, I will discharge patient. la1 Data interpreted: Pulse oximetry: is not applicable for this patient encounter. Counseling: I had a detailed discussion with the patient and/or guardian regarding: the historical points, exam findings, and any diagnostic results supporting the discharge/admit diagnosis, the need for outpatient follow up, a family practitioner. Response to treatment: the patient's symptoms have resolved after treatment, and as a result, I will discharge patient. ED course: Nurse placed new lazar, draining urine, pt feels better, will FU with PCP. 09/23 09:06 Order name: Lazar; Complete Time: 09:54 la1 Administered Medications: No medications were administered Disposition: 15:29 Co-signature as Attending Physician, Ariela Vinson MD. ma2 Disposition: 09/23/19 09:58 Discharged to Home. Impression: Retention of urine. - Condition is Stable. - Discharge Instructions: Lazar Catheter Care, Adult, Lazar Catheter Care, Adult, [id number]. - Medication Reconciliation Form, Thank You Letter form. - Follow up: Private Physician; When: 2 - 3 days; Reason: Recheck today's complaints, Re-evaluation by your physician. Signatures: Caren Garcia, RN RN iw Brando Lerner, BUNG SEWER-C BUNG SEWER-Cla1 Amarilis Rowan RN RN jl7 Ariela Vinson MD MD ma2 Corrections: (The following items were deleted from the chart) 10:19 09:58 09/23/2019 09:58 Discharged to Home. Impression: Retention of urine. Condition is jl7 Stable. Forms are Medication Reconciliation Form, Thank You Letter, Antibiotic Education, Prescription Opioid Use. Follow up: Private Physician; When: 2 - 3 days; Reason: Recheck today's complaints, Re-evaluation by your physician. la1
== END 2019-09-23 10:19 | disposition home or self-care (01) ==
CPT/HCPCS: 51702; 99284

== ENCOUNTER 2019-10-12 09:56 | Observation (INO) | payer OTHER ==
--- NOTE | 2019-10-12 10:23 | EKG ---
Test Date: 2019-10-12 Test Time: 09:59:30 Infectious Diseases Physician: CASEY MEASUREMENT RESULTS: Intervals: Rate: 65 TX: 202 QRSD: 120 QT: 444 QTc: 461 [place]it: P: 77 TX: 202 QRS: -68 T: 15 INTERPRETIVE STATEMENTS: Sinus rhythm with premature atrial complexes Left axis deviation Possible Anterior infarct, age undetermined Abnormal ECG Compared to ECG 05/04/2018 17:24:54 Atrial premature complex(es) now present Left-axis deviation now present First degree AV block no longer present Myocardial infarct finding still present Electronically Signed On 10-12-19 10:22:24 HAND DRAWER IN by Ganesh Vail
[2019-10-12] MEDS ORDERED: NA CHLORIDE 0.9% 500 ML ONE (10:26)
[2019-10-12 10:28] LABS: Absolute Lymphocytes (CBC) 0.9 K/uL (0.7-4.9); Basophils % 0.5 % (0-1.3); Hematocrit 31.1 % (39.6-49.0); Lymphocytes % 11.6 % (15.3-44.8); MPV 8.5 fL (7.6-11.3); RBC Red Blood Cell Count 3.71 M/uL (4.33-5.43)
[2019-10-12 10:34] LABS: Urine Blood 3+ (NEG); Urine Glucose NEGATIVE (NEG); Urine Protein 2+ (NEG)
--- NOTE | 2019-10-12 10:40 | RAD REPORT ---
EXAM DESCRIPTION: CT - Head Brain Wo Cont - 10/12/2019 10:24 am CLINICAL HISTORY: SYNCOPE COMPARISON: Head Brain Wo Cont dated 06/10/2017 TECHNIQUE: Axial 5 mm thick images of the head were obtained without IV contrast. All CT scans are performed using dose optimization technique as appropriate and may include automated exposure control or mA/KV adjustment according to patient size. FINDINGS: No intracranial hemorrhage, mass, edema or shift of mid-line structures. No acute infarcti on changes seen. No abnormal extra-axial fluid collections. Prominent atrophy and chronic ischemic ch anges are present. No cortical edema or sulcal effacement. Atrophy is in proportion to the amount of volume loss. Intracranial findings are not significantly different from 2017. Mastoid air cells and visualized portions of the paranasal sinuses are clear. No acute bony findings. IMPRESSION: Prominent atrophy and chronic ischemic change with no acute finding identifiable. CT head findings are similar to the 2017 comparison study.
[2019-10-12 10:44] LABS: Urine Bacteria >50 /HPF (NONE SEEN); Urine Culture Reflex Order REFLEXED; Urine Mucus 2+ /HPF (NONE SEEN); Urine RBC >50 /HPF (NONE SEEN)
[2019-10-12 10:48] LABS: BUN Blood Urea Nitrogen 40 mg/dL (7-18); Bicarbonate 29 mmol/L (21-32); Glucose Level 124 mg/dL (74-106); NT PRO-BNP 1353 pg/mL (<450); Potassium 4.5 mmol/L (3.5-5.1); Sodium Level 142 mmol/L (136-145); Troponin (Emerg Dept Use Only) < 0.02 ng/mL (0.0-0.045)
[2019-10-12] MEDS ORDERED: CEFTRIAXONE/SWI 1gm 1 GM/10 ML SYR ONE (11:20)
[2019-10-12 12:12] LABS: Urine Blood 2+ (NEG); Urine Glucose NEGATIVE (NEG); Urine Protein 1+ (NEG); Urine Specific Gravity 1.015 (1.005-1.030); Urine pH 6.5 (5.0-7.0)
--- NOTE | 2019-10-12 12:15 | ER ---
Nurse's Notes [facility] Name: Derrick De La Cruz Age: 84 yrs Sex: Male : 1935 Arrival Date: 10/12/2019 Time: 10:01 Bed 4 Private MD: Diagnosis: Syncope and collapse;Dehydration;Urinary tract infection, site not specified Presentation: 10/12 10:01 Presenting complaint: EMS states: was at the urologist to get his Soriano changed, was in em wheelchair and was trying to transfer over to bed, daughter states he passed out and was snoring, did not fall, BGL 169, also reports weakness. Transition of care: patient was not received from another setting of care. Onset of symptoms was October 12, 2019. Risk Assessment: Do you want to hurt yourself or someone else? Patient reports no desire to harm self or others. Initial Sepsis Screen: Does the patient meet any 2 criteria? No. Patient's initial sepsis screen is negative. Does the patient have a suspected source of infection? Yes: Dysuria/Frequency/Urgency/UTI Catheter related infection (Soriano/dialysis/PICC/central line). Care prior to arrival: None. 10:01 Method Of Arrival: EMS: [facility] em 10:01 Acuity: BERTHA 3 em Historical: - Allergies: 10: No Known Allergies; em - Home Meds: 10:06 allopurinol 300 mg Oral tab 1 tab once daily [Active]; furosemide 40 mg Oral tab 1 tab em once daily [Active]; Klor-Con 10 meq Oral once daily [Active]; Levemir 100 unit/mL subcutaneous soln 55 unit daily [Active]; Lipitor 10 mg Oral tab 1 tab once daily [Active]; Lyrica Oral 1 cap 2 times per day [Active]; Metanx (algal oil) 3 mg-35 mg-2 mg -90.314 mg Oral cap daily [Active]; metoprolol tartrate 100 mg Oral tab 1 tab 2 times per day [Active]; Novolog 100 unit/mL Sub-Q soln 10 unit before each meal [Active]; Ventolin HFA 90 mcg/actuation Nebulizer HFAA 1 puff every 4-6 hours [Active]; - PMHx: 10:06 Lymphadema; Diabetes - IDDM; Hypertension; em - PSHx: 10:06 R knee replacement; back sx; em - Immunization history:: Adult Immunizations up to date. - Coronavirus screen:: The patient has NOT traveled to [place], [place], or [place] in the past 14 days. The patient has NOT had contact with known/suspected case of Coronavirus?. - Social history:: Smoking status: Patient denies any tobacco usage or history of. - Family history:: not pertinent. - Ebola Screening: : Patient negative for fever greater than or equal to 101.5 degrees Fahrenheit, and additional compatible Ebola Virus Disease symptoms Patient denies exposure to infectious person Patient denies travel to an Ebola-affected area in the 21 days before illness onset No symptoms or risks identified at this time. - Hospitalizations: : No recent hospitalization is reported. Screenin:07 Abuse screen: Denies threats or abuse. Nutritional screening: No deficits noted. em Tuberculosis screening: No symptoms or risk factors identified. Fall Risk None identified. Assessment: 10:06 General: Appears in no apparent distress. comfortable, Behavior is calm, cooperative, em appropriate for age, Reports fatigue for 1-2 days. Pain: Complains of pain in coccyx. Neuro: Level of Consciousness is awake, alert, obeys commands, Oriented to person, place, time, situation, Appropriate for age. Cardiovascular: Reports shortness of breath, Denies chest pain, Capillary refill < 3 seconds Patient's skin is warm and dry. Edema is 4+ to left midcalf, left ankle, right midcalf and right ankle Rhythm is sinus rhythm. Respiratory: Airway is patent Respiratory effort is even, unlabored, Respiratory pattern is regular, symmetrical. GI: Abdomen is obese. : Soriano in place Urine is clear. Derm: Skin is intact, is thin, Skin is pink, warm \T\ dry. Musculoskeletal: Range of motion: intact in all extremities. 10:20 Reassessment: Patient appears in no apparent distress at this time. wheeled to CT via em stretcher. 10:59 Reassessment: Patient appears in no apparent distress at this time. Patient and/or em family updated on plan of care and expected duration. Pain level reassessed. Patient is alert, oriented x 3, equal unlabored respirations, skin warm/dry/pink. 12:01 Reassessment: Patient appears in no apparent distress at this time. removed old Soriano em and applied new 20 Fr Soriano with leg bag, tolerated well. 13:00 Reassessment: Patient appears in no apparent distress at this time. Patient and/or em family updated on plan of care and expected duration. Pain level reassessed. Patient is alert, oriented x 3, equal unlabored respirations, skin warm/dry/pink. 13:54 Reassessment: Patient appears in no apparent distress at this time. Patient and/or em family updated on plan of care and expected duration. Pain level reassessed. Patient is alert, oriented x 3, equal unlabored respirations, skin warm/dry/pink. Vital Signs: 10:06 BP 139 / 68; Pulse 62; Resp 20; Temp 97.0; Pulse Ox 95% on R/A; em 10:59 BP 116 / 52; Pulse 66; Resp 16; Pulse Ox 98% on 2 lpm NC; em 12:00 BP 118 / 55; Pulse 59; Resp 18; Pulse Ox 99% on 2 lpm NC; em 13:00 BP 115 / 55; Pulse 60; Resp 16; Pulse Ox 100% on 2 lpm NC; em 14:05 BP 110 / 53; Pulse 71; Resp 18; Pulse Ox 98% on 2 lpm NC; em ED Course: 10:01 Patient arrived in ED. em 10:01 Ortiz Kay MD is Attending Physician. rn 10:05 Triage completed. em 10:06 Arm band placed on. EKG completed in triage. Results shown to MD. EKG completed in em triage. Results shown to MD. 10:07 Patient has correct armband on for positive identification. Bed in low position. Call em light in reach. Side rails up X 1. Adult w/ patient. panel monitor on. Pulse ox on. NIBP on. 10:15 Initial lab(s) drawn, by me, sent to lab. Inserted saline lock: 20 gauge in left em antecubital area, using aseptic technique. Blood collected. 10:16 Tk Singh, RN is Primary Nurse. em 12:03 Soriano cath removed intact, balloon deflated. em 12:03 Soriano cath inserted, using sterile technique, 20 Fr., by me, by ED staff, balloon em inflated, returned cloudy urine. Patient tolerated well. 12:12 Hipolito Desai MD is Hospitalizing Provider. rn 14:02 No provider procedures requiring assistance completed. Patient admitted, IV remains in em place. Administered Medications: 10:39 Drug: NS 0.9% 500 ml Route: IV; Rate: bolus; Site: left antecubital; em 11:12 Follow up: IV Status: Completed infusion; IV Intake: 500ml em 12:10 Drug: Rocephin 1 grams Route: IV; Rate: calculated rate; Site: left antecubital; em 12:20 Follow up: Response: No adverse reaction; IV Status: Completed infusion; IV Intake: 10mlem Intake: 11:12 IV: 500ml; Total: 500ml. em 12:20 IV: 10ml; Total: 510ml. em Output: 10:30 Urine: 200ml (Soriano); Total: 200ml. em 12:05 Urine: 600ml (Soriano); Total: 800ml. em Outcome: 12:13 Decision to Hospitalize by Provider. rn 14:02 Admitted to Med/surg accompanied by tech, via stretcher, room 224, with oxygen, with em chart, Report called to JAIME Chin 14:02 Condition: good 14:02 Instructed on the need for admit, Demonstrated understanding of instructions. 14:26 Patient left the ED. em Signatures: Tk Singh RN RN em Ortiz Kay MD MD contractor [employer] threshing: (The following items were deleted from the chart) 10:07 10:01 Presenting complaint: EMS states: was at the urologist to get his Soriano changed, em was in wheelchair and was trying to transfer over to bed, daughter states he passed out and was snoring, did not fall, BGL 169, also reports weakness em 14:23 14:05 Reassessment: Dr. Glynn at bedside em em
--- NOTE | 2019-10-12 12:16 | EDPHYS ---
Physician Documentation [facility] Name: Derrick De La Cruz Age: 84 yrs Sex: Male : 1935 Arrival Date: 10/12/2019 Time: 10:01 Bed 4 Private MD: ED Physician Ortiz Kay HPI: 10/12 10:18 This 84 yrs old Male presents to ER via EMS with complaints of Syncope. rn 10:18 The patient has experienced syncope. Onset: The symptoms/episode began/occurred just rn prior to arrival. Duration: This was a single episode. Associated injury: The patient did not suffer any apparent associated injury. Associated signs and symptoms: Pertinent positives: weakness, Pertinent negatives: abdominal pain, chest pain, diarrhea. Current symptoms: Currently, the patient is not experiencing any symptoms. The patient has not experienced similar symptoms in the past. Reports at Dr. Galaviz office, was getting lazar changed as usually does, no fever/vomiting/diarrhea/chest pain/abd pain. Was transferring to bed and daughter states passed out. No seizure. . Historical: - Allergies: 10: No Known Allergies; em - Home Meds: 10:06 allopurinol 300 mg Oral tab 1 tab once daily [Active]; furosemide 40 mg Oral tab 1 tab em once daily [Active]; Klor-Con 10 meq Oral once daily [Active]; Levemir 100 unit/mL subcutaneous soln 55 unit daily [Active]; Lipitor 10 mg Oral tab 1 tab once daily [Active]; Lyrica Oral 1 cap 2 times per day [Active]; Metanx (algal oil) 3 mg-35 mg-2 mg -90.314 mg Oral cap daily [Active]; metoprolol tartrate 100 mg Oral tab 1 tab 2 times per day [Active]; Novolog 100 unit/mL Sub-Q soln 10 unit before each meal [Active]; Ventolin HFA 90 mcg/actuation Nebulizer HFAA 1 puff every 4-6 hours [Active]; - PMHx: 10:06 Lymphadema; Diabetes - IDDM; Hypertension; em - PSHx: 10:06 R knee replacement; back sx; em - Immunization history:: Adult Immunizations up to date. - Coronavirus screen:: The patient has NOT traveled to [place], [place], or [place] in the past 14 days. The patient has NOT had contact with known/suspected case of Coronavirus?. - Social history:: Smoking status: Patient denies any tobacco usage or history of. - Family history:: not pertinent. - Ebola Screening: : Patient negative for fever greater than or equal to 101.5 degrees Fahrenheit, and additional compatible Ebola Virus Disease symptoms Patient denies exposure to infectious person Patient denies travel to an Ebola-affected area in the 21 days before illness onset No symptoms or risks identified at this time. - Hospitalizations: : No recent hospitalization is reported. ROS: 10:18 Constitutional: Negative for fever, chills, and weight loss, Eyes: Negative for injury, rn pain, redness, and discharge, Neck: Negative for injury, pain, and swelling, Cardiovascular: Negative for chest pain, palpitations, and edema, Respiratory: Negative for shortness of breath, cough, wheezing, and pleuritic chest pain, Abdomen/GI: Negative for abdominal pain, nausea, vomiting, diarrhea, and constipation, MS/Extremity: Negative for injury and deformity, Skin: Negative for injury, rash, and discoloration, Neuro: Negative for headache, numbness, tingling, and seizure. Exam: 10:18 Constitutional: Overweight male, no acute distress Head/Face: Normocephalic, rn atraumatic. ENT: dry MM Cardiovascular: Regular rate and rhythm. No pulse deficits. Respiratory: No increased work of breathing, no retractions or nasal flaring. Abdomen/GI: soft, non-tender MS/ Extremity: Pulses equal, no cyanosis. Neuro: Awake and alert, GCS 15, oriented to person, place, time, and situation. Cranial nerves II-XII grossly intact. Motor strength 4/5 in all extremities. Sensory grossly intact. Vital Signs: 10:06 BP 139 / 68; Pulse 62; Resp 20; Temp 97.0; Pulse Ox 95% on R/A; em 10:59 BP 116 / 52; Pulse 66; Resp 16; Pulse Ox 98% on 2 lpm NC; em 12:00 BP 118 / 55; Pulse 59; Resp 18; Pulse Ox 99% on 2 lpm NC; em 13:00 BP 115 / 55; Pulse 60; Resp 16; Pulse Ox 100% on 2 lpm NC; em 14:05 BP 110 / 53; Pulse 71; Resp 18; Pulse Ox 98% on 2 lpm NC; em MDM: 10:01 Patient medically screened. rn 11:28 ED course: Pt states lazar had not been changed prior to passing out, will place new rn lazar and get new sample. . 12:10 Differential Diagnosis: cardiac arrhythmia, idiopathic syncope, vasovagal episode, rn dehydration, uti. Data reviewed: vital signs, nurses notes, lab test result(s), radiologic studies. 12:11 Counseling: I had a detailed discussion with the patient and/or guardian regarding: the rn historical points, exam findings, and any diagnostic results supporting the discharge/admit diagnosis, lab results, the need for further work-up and treatment in the hospital. Response to treatment: the patient's symptoms have mildly improved after treatment, and as a result, I will admit patient. Admission orders: after a detailed discussion of the patient's condition and case, the admit orders are written by me. 10/12 10:09 Order name: Basic Metabolic Panel rn 10/12 10:09 Order name: CBC with Diff rn 10/12 10:09 Order name: Troponin (emerg Dept Use Only) rn 10/12 10:09 Order name: Urine Microscopic Only rn 10/12 10:09 Order name: BNP rn 10/12 10:23 Order name: Urine Dipstick--Ancillary (enter results) em1 10/12 10:30 Order name: CBC with Automated Diff; Complete Time: 11:08 EDGA 10/12 10:35 Order name: Urine Dipstick-Ancillary; Complete Time: 11:08 EDGA 10/12 10:48 Order name: Urine Microscopic Only; Complete Time: 11:08 EDGA 10/12 10:49 Order name: Basic Metabolic Panel; Complete Time: 11:08 EDGA 10/12 10:49 Order name: Troponin (Emerg Dept Use Only); Complete Time: 11:08 EDMS 10/12 10:49 Order name: NT PRO-BNP; Complete Time: 11:08 EDGA 10/12 12:09 Order name: Urine Microscopic Only iw 10/12 12:09 Order name: Urine Culture iw 10/12 10:09 Order name: CT Head Brain wo Cont rn 10/12 10:09 Order name: EKG; Complete Time: 10:11 rn 10/12 10:09 Order name: Cardiac monitoring; Complete Time: 10:17 rn 10/12 10:09 Order name: EKG - Nurse/Tech; Complete Time: 10: rn 10/12 10:09 Order name: IV Saline Lock; Complete Time: : rn 10/12 10:09 Order name: Labs collected and sent; Complete Time: : rn 10/12 10:09 Order name: O2 Per Protocol; Complete Time: 10: rn 10/12 10:09 Order name: O2 Sat Monitoring; Complete Time: : rn 10/12 10:09 Order name: Urine Dipstick-Ancillary (obtain specimen); Complete Time: : rn 10/12 12:10 Order name: Urine Dipstick--Ancillary (enter results) em1 10/12 12:16 Order name: Urine Dipstick-Ancillary EDMS 10/12 12:36 Order name: Urine Microscopic Only EDMS 10/12 13:41 Order name: CT EDMS Administered Medications: 10:39 Drug: NS 0.9% 500 ml Route: IV; Rate: bolus; Site: left antecubital; em 11:12 Follow up: IV Status: Completed infusion; IV Intake: 500ml em 12:10 Drug: Rocephin 1 grams Route: IV; Rate: calculated rate; Site: left antecubital; em 12:20 Follow up: Response: No adverse reaction; IV Status: Completed infusion; IV Intake: 10mlem Disposition: 10/12/19 12:13 Hospitalization ordered by Hipolito Desai for Observation. Preliminary diagnosis are Syncope and collapse, Dehydration, Urinary tract infection, site not specified. - Bed requested for Telemetry/MedSurg (observation). - Status is Observation. em - Condition is Stable. - Problem is new. - Symptoms have improved. Signatures: Dispatcher [employer] EDGA Tk Singh, Ortiz Lucas RN, MD MD rn Martinez, Eric em1 Corrections: (The following items were deleted from the chart) 10:22 10:18 Constitutional: Overweight male, no acute distress Head/Face: Normocephalic, rn atraumatic. ENT: dry MM Cardiovascular: Regular rate and rhythm. No pulse deficits. Respiratory: No increased work of breathing, no retractions or nasal flaring. Abdomen/GI: soft, non-tender MS/ Extremity: Pulses equal, no cyanosis. Neuro: Awake and alert, GCS 15, oriented to person, place, time, and situation. Cranial nerves II-XII grossly intact. Motor strength 4/5 in all extremities. Sensory grossly intact. rn 13:35 12:13 Hospitalization Ordered by Hipolito Desai MD for Observation. Preliminary diagnosis em1 is Syncope and collapse; Dehydration; Urinary tract infection, site not specified. Bed requested for Telemetry/MedSurg (observation). Status is Observation. Condition is Stable. Problem is new. Symptoms have improved. rn 14:26 13:35 10/12/2019 12:13 Hospitalization Ordered by Hipolito Desai MD for Observation. em Preliminary diagnosis is Syncope and collapse; Dehydration; Urinary tract infection, site not specified. Bed requested for Telemetry/MedSurg (observation). Status is Observation. Condition is Stable. Problem is new. Symptoms have improved. em1
[2019-10-12 12:32] LABS: Urine Bacteria >50 /HPF (NONE SEEN); Urine RBC 20-50 /HPF (NONE SEEN)
[2019-10-12 12:33] LABS: Urine Culture Reflex Order REFLEXED; Urine Mucus 1+ /HPF (NONE SEEN)
[2019-10-12] MEDS ORDERED: NA CHLORIDE 0.9% 1,000 ML IV SCH (14:38)
[2019-10-12] MEDS ORDERED: ONDANSETRON 4 MG/2 ML VIAL IV PRN (14:38)
[2019-10-12 15:26] VITALS: BMI 27.1
[2019-10-12] MEDS ORDERED: INFLUENZA VACCINE (for 3y+) 0.5 ML DOSE IMVAC ONE (16:00)
[2019-10-12] MEDS ORDERED: DOCUSATE NA 100 MG CAP PO PRN (18:07)
[2019-10-12] MEDS ORDERED: FAMOTIDINE 10 MG PO PRN (18:07)
[2019-10-12] MEDS ORDERED: FAMOTIDINE 20 MG TAB PO PRN (18:29)
[2019-10-12] MEDS ORDERED: ALBUTEROL INHALER 60 PUFF/8 GM IH SCH (18:30)
[2019-10-12] MEDS ORDERED: HOME MED 1 EA UNK (Insulin Detemir [Levemir Flextouch] 40 UNITS) SQ SCH (20:30)
[2019-10-12] MEDS ORDERED: INSULIN GLARGINE 100 UNITS/ML SQ SCH (20:30)
[2019-10-12] MEDS ORDERED: ATORVASTATIN 10 MG TAB PO SCH (21:00)
[2019-10-12] MEDS: CEFTRIAXONE/SWI 1gm 1 GM/10 ML SYR IVP SCH (21:07)
[2019-10-12] MEDS: METOPROLOL TAR 50 MG TAB PO SCH (21:08)
--- NOTE | 2019-10-12 21:19 | P.HP ---
Certification for Inpatient Patient admitted to: Observation With expected LOS: <2 Midnights Practitioner: I am a practitioner with admitting privileges, knowledge of patient current condition, hospital course, and medical plan of care. Services: Services provided to patient in accordance with Admission requirements found in Title 42 Section 412.3 of the Code of Federal Regulations Patient History Date of Service: 10/12/19 Reason for admission: WEAK, SHAKY, ALMOST PASSED OUT History of Present Illness: MR. JONES IS A DIABETIC PATIENT WITH RETENTION OF URINE WHO HAS INDWELLING SNYDER , WHILE CHANGING SNYDER AT DR. DHILLON'S OFFICE HE ALMOST PASSED OUT AND WAS WEAK. HE IS ADMITTED FOR MILD DEHYDRATION AND POSSIBLE UTI. Allergies No Known Allergies Allergy (Verified 06/10/16 22:20) Home Medications: Albuterol Inhaler [Ventolin Inhaler*] 1 puff IH DAILY 05/04/18 Atorvastatin Calcium [Lipitor*] 10 mg PO BEDTIME 05/04/18 Cephalexin [Keflex*] 500 mg PO DAILY 05/04/18 Docusate Sodium [Stool Softener] 100 mg PO DAILY PRN 05/04/18 Famotidine 10 mg PO BID PRN 05/04/18 Furosemide [Lasix] 40 mg PO DAILY 05/04/18 Insulin Detemir [Levemir Flextouch] 40 units SQ 30 MIN BEFORE HS 05/04/18 Levocetirizine Dihydrochloride [Xyzal] 5 mg PO DAILY 05/04/18 Metoprolol Tartrate [Lopressor] 100 mg PO BID 05/04/18 Potassium Chloride [Klor-Con 10] 10 meq PO DAILY 05/04/18 Pregabalin [Lyrica] 75 mg PO BID 05/04/18 Insulin Detemir [Levemir Flextouch] 120 units SQ BREAKFAST 05/05/18 - Past Medical/Surgical History Has patient received pneumonia vaccine in the past: No Diabetic: Yes -: IDDM -: diabetic neuropathy. -: bilat cellulitis to legs -: bilat lens implants -: HTN -: hypercholesterolemia -: diabetic neuropathy -: Anemia -: bladder ca -: Spinal Surgery 1989 -: Right Knee Replacement 1989 -: Left ankle sx - pin in place 1994 -: Left 2nd toe sx - nikia in place -: bladder sx benign tumor removal - Family History Father -: Stroke - Social History Smoking Status: Former smoker Alcohol use: No CD- Drugs: No Caffeine use: Yes Place of Residence: Home Review of Systems 10-point ROS is otherwise unremarkable General: Weakness, Malaise Physical Examination - Vital Signs Temperature: 97.6 F Blood Pressure: 156/69 Pulse: 59 Respirations: 18 Pulse Ox (%): 97 - Physical Exam General: Alert, In no apparent distress, Obese HEENT: Atraumatic, PERRLA, Mucous membr. moist/pink, EOMI, Sclerae nonicteric Neck: Supple, 2+ carotid pulse no bruit, No LAD, Without JVD or thyroid abnormality Respiratory: Clear to auscultation bilaterally, Normal air movement Cardiovascular: Regular rate/rhythm, Normal S1 S2 Gastrointestinal: Normal bowel sounds, No tenderness Musculoskeletal: No tenderness Integumentary: No rashes Neurological: Normal gait, Normal speech, Normal strength at 5/5 x4 extr, Normal tone, Normal affect Lymphatics: No axilla or inguinal lymphadenopathy - Studies Laboratory Data (last 24 hrs) 10/12/19 10:15: WBC 7.8, Hgb 9.8 L, Hct 31.1 L, Plt Count 232 10/12/19 10:15: Sodium 142, Potassium 4.5, BUN 40 H, Creatinine 1.67 H, Glucose 124 H Assessment and Plan - Problems (Diagnosis) (1) Diabetic neuropathy Current Visit: No Status: Chronic Plan: OLD PROBLEM. MANAGED WITH LYRICA. DM CONTROLED WITH HIGH DOSE OF LANTUS. HIS PHYSICAL CONDITION IS POOR AND DIET HABITS ARE NOT THE BEST. Qualifiers: Diabetes mellitus type: type 2 (2) Dehydration Onset Date: 01/21/16 Current Visit: No Status: Resolved Plan: GENTLE IV HYDRATION. (3) UTI (urinary tract infection) Onset Date: 06/11/16 Current Visit: No Status: Acute Plan: HE HAS INDWELLING CATHETER IV ROCEPHIN. IT IS UNCLEAR IF WHAT WE ARE SEEING IS COLONIZED BACTERIA OR REAL INFECTION. Qualifiers: Urinary tract infection type: catheter-associated UTI - Advance Directives Does patient have a Living Will: No Does patient have a Durable POA for Healthcare: Yes
[2019-10-13] MEDS: NA CHLORIDE 0.9% 1,000 ML IV SCH ×2 (03:10→11:20)
[2019-10-13 06:26] LABS: Absolute Lymphocytes (CBC) 0.9 K/uL (0.7-4.9); Basophils % 0.3 % (0-1.3); Hematocrit 31.8 % (39.6-49.0); Lymphocytes % 11.3 % (15.3-44.8); MPV 8.5 fL (7.6-11.3); RBC Red Blood Cell Count 3.78 M/uL (4.33-5.43)
[2019-10-13 06:35] LABS: Potassium 4.8 mmol/L (3.5-5.1)
[2019-10-13] MEDS ORDERED: INSULIN DETEMIR 120 UNIT SQ SCH (08:00)
[2019-10-13] MEDS ORDERED: INSULIN GLARGINE 100 UNITS/ML SQ SCH (08:00)
[2019-10-13] MEDS ORDERED: D50W 25 GM/50 ML SYRINGE/VIAL IV PRN (08:54)
[2019-10-13] MEDS ORDERED: GLUCAGON 1 MG/VIAL IM PRN (08:54)
[2019-10-13] MEDS: CEFTRIAXONE/SWI 1gm 1 GM/10 ML SYR IVP SCH (08:59)
[2019-10-13] MEDS: METOPROLOL TAR 50 MG TAB PO SCH (09:00)
[2019-10-13] MEDS ORDERED: HOME MED 1 EA UNK (Levocetirizine Dihydrochloride [Xyzal] 5 MG) PO SCH (09:00)
[2019-10-13] MEDS ORDERED: CETIRIZINE HCL 5 MG TABLET PO SCH (09:00)
[2019-10-13] MEDS ORDERED: CEPHALEXIN 500 MG PO SCH (09:00)
[2019-10-13] MEDS ORDERED: POTASSIUM CL SA 10 MEQ TAB PO SCH (09:00)
[2019-10-13] MEDS ORDERED: PNEUMOCOCCAL VACCINE 0.5 ML IMVAC ONE (10:00)
[2019-10-13 10:19] VITALS: O2SAT 95
[2019-10-13 12:31] VITALS: BP 150/76; TEMP 98.3
--- NOTE | 2019-10-14 07:53 | DS ---
Date of Discharge: 10/13/2019 Final Diagnoses: Near-syncope, urinary tract infection. Secondary Diagnoses: Diabetic autonomic bladder dysfunction, diabetic neuropathy, diabetic vascular disease, chronic lymphedema, osteoarthritis. Hospital Course: Patient who is 84-year-old gentleman, past medical history of above medical problem s, comes in with near syncopal episode. He blames it to actually on narrow tables at Dr. Beard's off ice where he could not climb and almost passed out, but the same time he had mild hypotension. He jane s slight dehydration and a possibility of UTI. He has indwelling Soriano catheter. So, unfortunately urine specimen will be unreliable even though urine culture has been done. He has been discharged no w on Ceftin p.o. 250 b.i.d. for 7 days. He will resume Keflex once a day after that. Dr. Beard is g iving Keflex to him on a lifetime basis for preventive purpose for UTI as he has indwelling Soriano cat heter. His condition is stable at discharge. He will come to the office in about 10 days. CAROLINE/NORBERTO Voice ID: [id number] Report ID: [id number]
[2019-10-14] MEDS ORDERED: INSULIN GLARGINE 100 UNITS/ML SQ ONE (08:55)
== END 2019-10-13 13:19 | disposition home or self-care (01) ==
LOC: ER 09:56 → ERHOLD 12:21 → 2ND 13:56
PROVIDERS: ADMIT Internal Medicine; ATTEND Internal Medicine
DX: N39.0 Urinary tract infection, site not specified (principal); E11.40 Type 2 diabetes mellitus with diabetic neuropathy, unspecified; E86.0 Dehydration; N31.2 Flaccid neuropathic bladder, not elsewhere classified; M19.90 Unspecified osteoarthritis, unspecified site; I89.0 Lymphedema, not elsewhere classified; I10 Essential (primary) hypertension; Z85.51 Personal history of malignant neoplasm of bladder; Z96.651 Presence of right artificial knee joint; Z87.891 Personal history of nicotine dependence
CPT/HCPCS: 96361; 93005; 87088 ×2; 85025 ×2; 87086 ×2; 80048 ×2; 36415; 82947 ×5; 87077 ×2; 87186 ×2; 84484; 83880; 70450; 51702; 96374; 99285; J0696 ×3; J7040; J7030; G0378 ×3; 81003; 81015; J1815

== ENCOUNTER 2020-01-03 20:33 | Emergency (ER) | payer OTHER ==
[2020-01-03 21:09] LABS: Absolute Lymphocytes (CBC) 1.3 K/uL (0.7-4.9); Basophils % 0.4 % (0-1.3); Hematocrit 31.5 % (39.6-49.0); Lymphocytes % 14.4 % (15.3-44.8); MPV 8.4 fL (7.6-11.3); RBC Red Blood Cell Count 3.76 M/uL (4.33-5.43)
[2020-01-03 21:20] LABS: Albumin 2.5 g/dL (3.4-5.0); Bilirubin Direct 0.2 mg/dL (0-0.2); Bilirubin Total 0.5 mg/dL (0.2-1.0); Potassium 4.7 mmol/L (3.5-5.1); Protein, Total 7.2 g/dL (6.4-8.2)
--- NOTE | 2020-01-03 22:31 | ER ---
Nurse's Notes [facility] Name: Derrick De La Cruz Age: 84 yrs Sex: Male : 1935 Arrival Date: 01/03/2020 Time: 20:36 Bed 6 Private MD: Diagnosis: Urinary tract infection, site not specified Presentation: 01/02 20:37 Chief complaint: EMS states: PT reportedly had a temp of 100.3 at home so his daughter sangita gave him 2 tylenol. Reports not having any urine out put today and the family cannot flush the catheter. Catheter was replaced at Dr. Beard's office on the . Coronavirus screen: Proceed with normal triage. Ebola Screen: No symptoms or risks identified at this time. Initial Sepsis Screen: Does the patient meet any 2 criteria? No. Patient's initial sepsis screen is negative. Does the patient have a suspected source of infection? No. Patient's initial sepsis screen is negative. Risk Assessment: Do you want to hurt yourself or someone else? Patient reports no desire to harm self or others. Onset of symptoms was January 03, 2020. Care prior to arrival: Glucose check: 169. Transition of care: patient was not received from another setting of care. 20:37 Method Of Arrival: [facility] 20:37 Acuity: BERTHA 3 jb4 Historical: - Allergies: 20:37 No Known Allergies; jb4 - Home Meds: 20:37 cephalexin 500 mg Oral cap [Active]; levothyroxine 25 mcg tab 1 tab once daily jb4 [Active]; Toresemide 20 mg [Active]; atorvastatin 10 mg oral tab [Active]; levocetirizine 5 mg oral tab 1 tab once daily [Active]; Lyrica Oral 1 cap 2 times per day [Active]; metoprolol tartrate 100 mg Oral tab [Active]; pregabalin 50 mg Oral [Active]; hydroxyzine pamoate 25 mg Oral cap [Active]; potassium chloride 10 mEq Oral cpER [Active]; turmeric curcumin 500 mg [Active]; [place] Oral 450 mg [Active]; Levemir 100 unit/mL subcutaneous soln 55 unit daily [Active]; - PMHx: 20:37 Hypertension; Lymphadema; Diabetes - IDDM; jb4 - PSHx: 20:37 R knee replacement; back sx; jb4 - Immunization history:: Adult Immunizations up to date. - Social history:: Smoking status: Patient/guardian denies using tobacco, the patient reports quitting approximately 60 years ago, Patient/guardian denies using alcohol, street drugs. Screenin:54 Abuse screen: Denies threats or abuse. Nutritional screening: No deficits noted. ea Tuberculosis screening: No symptoms or risk factors identified. Fall Risk IV access (20 points). Assessment: 20:37 General: Appears in no apparent distress. uncomfortable, Behavior is calm, cooperative, jb4 appropriate for age. Pain: Denies pain. Neuro: Level of Consciousness is awake, alert, obeys commands, Oriented to person, place, time, situation. Cardiovascular: Patient's skin is warm and dry. Respiratory: Airway is patent Respiratory effort is even, unlabored, Respiratory pattern is regular, symmetrical. GI: No signs and/or symptoms were reported involving the gastrointestinal system. : No signs and/or symptoms were reported regarding the genitourinary system. EENT: No signs and/or symptoms were reported regarding the EENT system. Derm: Skin has skin tears on Left elbow Skin is pink, warm \\T\\ dry. Wound noted gluteal cleft and left gluteal fold Rash noted that is red, on groin. Musculoskeletal: Circulation, motion, and sensation intact. Range of motion: intact in all extremities. 21:30 Reassessment: Patient appears in no apparent distress at this time. Patient and/or jb4 family updated on plan of care and expected duration. Pain level reassessed. Patient is alert, oriented x 3, equal unlabored respirations, skin warm/dry/pink. Pt's daughter updated on plan of care. 22:30 Reassessment: Patient appears in no apparent distress at this time. Patient and/or jb4 family updated on plan of care and expected duration. Pain level reassessed. Patient is alert, oriented x 3, equal unlabored respirations, skin warm/dry/pink. 23:30 Reassessment: Patient appears in no apparent distress at this time. Patient and/or jb4 family updated on plan of care and expected duration. Pain level reassessed. Patient is alert, oriented x 3, equal unlabored respirations, skin warm/dry/pink. 01/03 00:00 Reassessment: Patient appears in no apparent distress at this time. Patient and/or jb4 family updated on plan of care and expected duration. Pain level reassessed. Patient is alert, oriented x 3, equal unlabored respirations, skin warm/dry/pink. Purulent drainage noted from the tip of the penis. Provider notified. See [facility] for orders. 01:05 Reassessment: Informed daughter of providers decision to run further test prior to jb4 making a decision on hospitalization or discharge due to the presence of purulent drainage from the head of the penis. Daughter verbalized understanding of need to keep patient for further testing. 01:38 Reassessment: Patient's son, Noman De La Cruz (Bruce), called to states they do not want to lp1 have patient transfer; Noman states "we will have him see his Urologist tomorrow, Dr. Beard"; Nurse informed Noman of signing patient out against medical advice, demonstrates understanding. 02:30 Reassessment: Patient appears in no apparent distress at this time. Patient and/or jb4 family updated on plan of care and expected duration. Pain level reassessed. Patient is alert, oriented x 3, equal unlabored respirations, skin warm/dry/pink. 03:10 Reassessment: Changed brief and performed perineal care. Soriano changed to leg bag. jb4 03:30 Reassessment: Patient appears in no apparent distress at this time. Patient and/or jb4 family updated on plan of care and expected duration. Pain level reassessed. Patient is alert, oriented x 3, equal unlabored respirations, skin warm/dry/pink. Pt left ED AMA. Daughter signed AMA form. Verbalized understanding of signing out against medical advice. Daughter states " We will follow up with his urologist Dr. Beard in the morning.". Assisted PT to vehicle via wheelchair. Vital Signs: 01/02 20:37 BP 141 / 67; Pulse 66; Resp 18; Temp 98.0(TE); Pulse Ox 97% on R/A; Weight 122.47 kg jb4 (R); Height 6 ft. 4 in. (193.04 cm) (R); Pain 0/10; 21:30 BP 119 / 51; Pulse 61; Resp 16; Pulse Ox 93% on R/A; jb4 22:30 BP 126 / 55; Pulse 58; Resp 16; Pulse Ox 96% on R/A; jb4 23:48 BP 135 / 62; Pulse 60; Resp 19; Pulse Ox 99% on R/A; ea 01/03 00:00 BP 115 / 98; Pulse 60; Resp 16; Pulse Ox 98% on R/A; jb4 01:50 BP 116 / 82; Pulse 62; Resp 16; Pulse Ox 99% on R/A; jb4 03:00 BP 122 / 59; Pulse 66; Resp 16; Pulse Ox 98% on R/A; jb4 01/02 20:37 Body Mass Index 32.87 (122.47 kg, 193.04 cm) jb4 ED Course: 01/02 20:36 Patient arrived in ED. jb4 20:37 Delano Allen MD is Attending Physician. tw4 20:37 Arm band placed on right wrist. jb4 20:37 Patient has correct armband on for positive identification. Bed in low position. Call jb4 light in reach. Side rails up X 1. Pulse ox on. NIBP on. 20:42 Triage completed. jb4 20:54 Inserted saline lock: 20 gauge in left antecubital area, using aseptic technique. Blood ea collected. 21:19 Soriano cath removed intact, balloon deflated, Removed due to catheter no longer draining.jb4 21:20 Soriano cath inserted, using sterile technique, 20 Fr., by nj, balloon inflated, to jb4 gravity drainage, urine specimen collected. returned wild urine. Patient tolerated well. 21:28 Omari Wren, RN is Primary Nurse. jb4 23:49 No provider procedures requiring assistance completed. 01/03 01:15 CT Abd/Pelvis - IV Contrast Only In Process Unspecified. EDMS 03:36 IV discontinued, intact, bleeding controlled, No redness/swelling at site. Pressure jb4 dressing applied. Administered Medications: 01/02 22:53 Drug: Rocephin - (cefTRIAXone) 1 grams Route: IVPB; Infused Over: 30 mins; Site: left ea antecubital; 23:49 Follow up: IV Status: Completed infusion ea 01/03 01:52 Drug: LevaQUIN 500 mg Volume: 100 ml; Route: IVPB; Infused Over: 60 mins; Site: left jb4 antecubital; 02:52 Follow up: Response: No adverse reaction; IV Status: Completed infusion; IV Intake: jb4 100ml Intake: 02:52 IV: 100ml; Total: 100ml. jb4 Outcome: 01/02 22:31 Discharge ordered by . tw4 01/03 03:36 AMA AMA form signed jb4 Condition: stable Discharge instructions given to patient, family, Instructed on discharge instructions, follow up and referral plans. Demonstrated understanding of instructions, follow-up care. 03:38 Patient left the ED. jb4 Addendum: 01/08/2020 09:16 Addendum: Culture Results: Positive urine culture. No further action required. Patient s s left against medical advice. Signatures: Dispatcher [employer] EDMS Marcela Cardona RN RN ss Abbey Hoffmann RN RN lp1 Omari Wren RN RN jb4 Rachel Chang RN RN Delano Hollis MD MD tw4 Corrections: (The following items were deleted from the chart) 01/03 03:38 01/02 20:37 Derm: Skin has skin tears on Left elbow Skin is pink, warm \\T\\ dry. Rash jb4 noted that is red, on groin jb4 01/03 06:16 03:30 Reassessment: Patient appears in no apparent distress at this time. Patient jb4 and/or family updated on plan of care and expected duration. Pain level reassessed. Patient is alert, oriented x 3, equal unlabored respirations, skin warm/dry/pink. Pt left ED AMA. Assisted to vehicle via wheelchair. jb4
--- NOTE | 2020-01-03 22:31 | EDPHYS ---
Physician Documentation [facility] Name: Derrick De La Cruz Age: 84 yrs Sex: Male : 1935 Arrival Date: 01/03/2020 Time: 20:36 Bed 6 Private MD: ED Physician Delano Allen HPI: 01/03 03:45 This 84 yrs old Male presents to ER via EMS with complaints of lazar catheter tw4 not draining. 03:45 The patient presents with a Lazar catheter problem, is not draining, is leaking urine. tw4 Onset: The symptoms/episode began/occurred today. Modifying factors: The symptoms are alleviated by nothing, the symptoms are aggravated by nothing. Severity of symptoms: At their worst the symptoms were moderate, in the emergency department the symptoms are unchanged. The patient has not experienced similar symptoms in the past. Historical: - Allergies: 01/02 20:37 No Known Allergies; jb4 - Home Meds: 20:37 cephalexin 500 mg Oral cap [Active]; levothyroxine 25 mcg tab 1 tab once daily jb4 [Active]; Toresemide 20 mg [Active]; atorvastatin 10 mg oral tab [Active]; levocetirizine 5 mg oral tab 1 tab once daily [Active]; Lyrica Oral 1 cap 2 times per day [Active]; metoprolol tartrate 100 mg Oral tab [Active]; pregabalin 50 mg Oral [Active]; hydroxyzine pamoate 25 mg Oral cap [Active]; potassium chloride 10 mEq Oral cpER [Active]; turmeric curcumin 500 mg [Active]; [place] Oral 450 mg [Active]; Levemir 100 unit/mL subcutaneous soln 55 unit daily [Active]; - PMHx: 20:37 Hypertension; Lymphadema; Diabetes - IDDM; jb4 - PSHx: 20:37 R knee replacement; back sx; jb4 - Immunization history:: Adult Immunizations up to date. - Social history:: Smoking status: Patient/guardian denies using tobacco, the patient reports quitting approximately 60 years ago, Patient/guardian denies using alcohol, street drugs. ROS: 01/03 03:45 Eyes: Negative for injury, pain, redness, and discharge, Cardiovascular: Negative for tw4 chest pain, palpitations, and edema, Respiratory: Negative for shortness of breath, cough, wheezing, and pleuritic chest pain, Abdomen/GI: Negative for abdominal pain, nausea, vomiting, diarrhea, and constipation. MS/Extremity: Negative for injury and deformity, Skin: Negative for injury, rash, and discoloration. Constitutional: Positive for fever. : Positive for difficulty urinating, foul smelling urine. Exam: 03:45 Constitutional: This is a well developed, well nourished patient who is awake, alert, tw4 and in no acute distress. 03:45 Head/Face: Normocephalic, atraumatic. Chest/axilla: Normal chest wall appearance and motion. Nontender with no deformity. No lesions are appreciated. Cardiovascular: Regular rate and rhythm with a normal S1 and S2. No gallops, murmurs, or rubs. Normal PMI, no JVD. No pulse deficits. Respiratory: Lungs have equal breath sounds bilaterally, clear to auscultation and percussion. No rales, rhonchi or wheezes noted. No increased work of breathing, no retractions or nasal flaring. Abdomen/GI: Soft, non-tender, with normal bowel sounds. No distension or tympany. No guarding or rebound. No evidence of tenderness throughout. Back: No spinal tenderness. No costovertebral tenderness. Full range of motion. MS/ Extremity: Pulses equal, no cyanosis. Neurovascular intact. Full, normal range of motion. Neuro: Awake and alert, GCS 15, oriented to person, place, time, and situation. Cranial nerves II-XII grossly intact. Motor strength 5/5 in all extremities. Sensory grossly intact. Cerebellar exam normal. Normal gait. 03:45 Constitutional: The patient appears obese. Vital Signs: 01/02 20:37 BP 141 / 67; Pulse 66; Resp 18; Temp 98.0(TE); Pulse Ox 97% on R/A; Weight 122.47 kg jb4 (R); Height 6 ft. 4 in. (193.04 cm) (R); Pain 0/10; 21:30 BP 119 / 51; Pulse 61; Resp 16; Pulse Ox 93% on R/A; jb4 22:30 BP 126 / 55; Pulse 58; Resp 16; Pulse Ox 96% on R/A; jb4 23:48 BP 135 / 62; Pulse 60; Resp 19; Pulse Ox 99% on R/A; ea 01/03 00:00 BP 115 / 98; Pulse 60; Resp 16; Pulse Ox 98% on R/A; jb4 01:50 BP 116 / 82; Pulse 62; Resp 16; Pulse Ox 99% on R/A; jb4 03:00 BP 122 / 59; Pulse 66; Resp 16; Pulse Ox 98% on R/A; jb4 01/02 20:37 Body Mass Index 32.87 (122.47 kg, 193.04 cm) jb4 MDM: 01/02 20:48 Patient medically screened. tw4 01/03 03:45 Differential diagnosis: nonspecific abdominal pain, appendicitis. Data reviewed: vital tw4 signs, nurses notes. Data reviewed: lab test result(s), CBC, electrolytes, hepatic panel, radiologic studies, CT scan. Data interpreted: Pulse oximetry: Interpretation: normal. Counseling: I had a detailed discussion with the patient and/or guardian regarding: the historical points, exam findings, and any diagnostic results supporting the discharge/admit diagnosis. Refusal of service: The patient/guardian displays adequate decision making capability and despite a detailed discussion of alternatives, benefits, risks, and consequences refuses: Admission to the hospital for further work-up and treatment. ED course: NURSE NOTED THAT PATIENT HAD PURULENT DRAINAGE COMING FROM AROUND HIS CATHETER. ATTEMPTED TO TRANSFER FOR UROLOGIC EVALUATION TO [facility], PT'S FAMILY REFUSED. RISKS OF REFUSAL EXPLAINED AND UNDERSTOOD BY FAMILY AND PATIENT . 01/02 20:38 Order name: Basic Metabolic Panel; Complete Time: 21:44 tw4 01/02 21:45 Interpretation: Normal except: GLUC 163; GFR 41; CRE 1.63; BUN 38. tw4 01/02 20:38 Order name: CBC with Diff; Complete Time: 21:44 tw4 01/02 21:45 Interpretation: Normal except: RBC 3.76; HGB 10.0; HCT 31.5; MCH 26.6; MCHC 31.8; RDW tw4 18.0. 01/02 20:38 Order name: Creatinine for Radiology; Complete Time: 21:44 tw4 01/02 21:45 Interpretation: Normal except: CRE 1.61; GFR 41. tw4 01/02 20:38 Order name: Hepatic Function; Complete Time: 21:44 tw4 01/02 21:45 Interpretation: Normal except: ALB 2.5; GLOB 4.7; A/G 0.5. [facility] 01/02 20:38 Order name: Lipase; Complete Time: 21:44 [facility] 01/02 21:45 Interpretation: Within normal limits: LIP 76. [facility] 01/02 21:46 Order name: Urine Microscopic Only [facility] 01/02 20:38 Order name: IV Saline Lock; Complete Time: 21:28 [facility] 01/02 20:38 Order name: Labs collected and sent; Complete Time: 21:29 [facility] 01/02 20:38 Order name: Urine Dipstick-Ancillary (obtain specimen); Complete Time: 21:28 [facility] 01/02 22:34 Order name: Urine Dipstick--Ancillary (enter results) [facility] 01/02 23:30 Order name: Urine Culture [facility] 01/03 00:08 Order name: CT Abd/Pelvis - IV Contrast Only [facility] 01/02 20:48 Order name: Lazar; Complete Time: 21:28 [facility] 01/02 21:46 Order name: Urine Dipstick-Ancillary (obtain specimen); Complete Time: 22:47 [facility] Administered Medications: 01/02 22:53 Drug: Rocephin - (cefTRIAXone) 1 grams Route: IVPB; Infused Over: 30 mins; Site: left antecubital; 23:49 Follow up: IV Status: Completed infusion 01/03 01:52 Drug: LevaQUIN 500 mg Volume: 100 ml; Route: IVPB; Infused Over: 60 mins; Site: left jb4 antecubital; 02:52 Follow up: Response: No adverse reaction; IV Status: Completed infusion; IV Intake: jb4 100ml Disposition: 01/04/20 03:34 Patient has left against medical advice. Impression: Urinary tract infection, site not specified. - Patients states they are going to Home. - Condition is Stable. - Discharge Instructions: Acute Urinary Retention, Male, Catheter-Associated Urinary Tract Infection FAQs - SOLANO. Follow up: Private Physician; When: Upon discharge from the Emergency Department; Reason: Recheck today's complaints, Continuance of care, Re-evaluation by your physician. - Problem is new. - Symptoms have improved. Signatures: Dispatcher [employer] Omari Katz RN RN [facility] Rachel Chang RN RN ea Wadley, Delano, MD MD tw4 Corrections: (The following items were deleted from the chart) 01/02 21:28 20:38 Urine Test ordered. tw4 jb4 01/03 00:07 01/02 22:31 01/03/2020 22:31 Discharged to Home. Impression: Mechanical complication of tw4 urinary (indwelling) catheter; Leakage of urinary (indwelling) catheter. Condition is Stable. Forms are Medication Reconciliation Form, Thank You Letter, Antibiotic Education, Prescription Opioid Use. Follow up: Private Physician; When: Upon discharge from the Emergency Department; Reason: Recheck today's complaints, Continuance of care, Re-evaluation by your physician. Problem is new. Symptoms have improved. tw4 01/03 03:34 03:34 01/04/2020 03:34 Patients has left against medical advice. Patient states they tw4 are going to Home. Condition is Stable. Follow up: Private Physician; When: Upon discharge from the Emergency Department; Reason: Recheck today's complaints, Continuance of care, Re-evaluation by your physician. Problem is new. Symptoms have improved. tw4 03:38 03:34 01/04/2020 03:34 Patients has left against medical advice. Impression: Urinary jb4 tract infection, site not specified. Patient states they are going to Home. Condition is Stable. Discharge Instructions: Acute Urinary Retention, Male, Catheter-Associated Urinary Tract Infection FAQs - SOLANO. Follow up: Private Physician; When: Upon discharge from the Emergency Department; Reason: Recheck today's complaints, Continuance of care, Re-evaluation by your physician. Problem is new. Symptoms have improved. tw4
[2020-01-03] MEDS ORDERED: CEFTRIAXONE/SWI 1gm 1 GM/10 ML SYR ONE (22:55)
[2020-01-03 23:28] LABS: Urine Bacteria 20-50 /HPF (NONE SEEN); Urine RBC >50 /HPF (NONE SEEN)
[2020-01-03 23:29] LABS: Urine Culture Reflex Order REFLEXED; Urine Urothelial Cells <5 /HPF (NONE SEEN)
[2020-01-03 23:47] LABS: Urine Blood 3+ (NEG); Urine Glucose NEGATIVE (NEG); Urine Protein 3+ (NEG)
[2020-01-04] MEDS ORDERED: Levofloxacin500mg IV 500 MG/100 ML BAG IV ONE (01:39)
[2020-01-04 03:49] VITALS: TEMP 98
[2020-01-04 04:33] VITALS: BP 122/59; O2SAT 98
--- NOTE | 2020-01-04 11:33 | RAD REPORT ---
EXAM DESCRIPTION: CT - Abdomen Pelvis W Contrast - 01/04/2020 4:59 am CLINICAL HISTORY: 84-year-old male with abdominal pain; history of bladder cancer, diabetes and hype rtension and prior history of back surgery TECHNIQUE: Axial CT imaging of the abdomen and pelvis was performed following the administration of intravenous contrast.. Sagittal and coronal reconstructed images were then performed. The CT study is perform ed according to ALARA (as low as reasonably achievable) or ALARA/IMAGE GENTLY, with automatic adjustm ent of mA and/or kV according to patient size. Performed on: 01/04/2020 at 1:09 AM. COMPARISON: 03/17/2014 FINDINGS: Lung bases: There is focal airspace consolidation in the posterior aspect of the left lowe r lobe which could represent an area of atelectasis versus a pneumonic infiltrate. The heart is mildl y enlarged. Liver: The liver measures approximately 18.5 cm in craniocaudal dimension. No focal hepatic abnormali ties are identified. Liver attenuation is within normal limits. Spleen: The spleen is enlarged and measures approximately 14.5 cm in craniocaudal dimension. No focal splenic abnormalities are identified. Gallbladder and bile duct: The gallbladder is moderately distended and is grossly unremarkable. The re is no biliary ductal dilatation. Pancreas: There is fatty replacement of the pancreas. No focal pancreatic abnormalities are identifie d. Adrenal Glands: The adrenal glands are normal in size and configuration. Kidneys: The kidneys are normal in size and configuration. There is mild fullness of the renal collec ting systems bilaterally. There is no evidence of nephrolithiasis. There are several small right lauren l cysts similar when compared to the prior study. There is stranding of the perinephric fat bilateral ly which is nonspecific but can be seen with chronic medical renal disease. Stomach: The stomach is grossly normal. There is no definite hiatal hernia. Bowel: The bowel gas pattern is non specific and non obstructive. There is moderate fecal residue sca ttered throughout the colon and rectum. Appendix: The appendix is normal. Free air: There is no evidence of free air. Free fluid: There is no evidence of free fluid. Vasculature: The aorta is normal in caliber and contour. The inferior vena cava is grossly unremarkab le. There are mild atherosclerotic calcifications along the abdominal aorta and iliac arteries. Lymphadenopathy: No pathologic lymphadenopathy is identified. Bladder: The bladder is decompressed due to the presence of a Soriano catheter. There is infiltration o f the perivesical fat which could be related to posttreatment changes versus an inflammatory process. Reproductive: The prostate gland is grossly within normal limits. Bones: No acute osseous abnormalities are identified. There are chronic degenerative changes of the l umbar spine. Soft tissues: No focal soft tissue abnormalities are identified. IMPRESSION: 1. Focal airspace consolidation in the posterior aspect of the left lower lobe which cou ld represent a pneumonic infiltrate or atelectasis. 2. Mild hepatosplenomegaly. 3. The gallbladder is moderately distended on this examination but is otherwise unremarkable. 4. Fatty infiltration of the pancreas. 5. There is moderate fecal residue scattered throughout the colon. 6. There is mild infiltration of the perivesical fat which may be related to posttreatment changes. A n inflammatory process involving the bladder is not entirely excluded. Electronically signed by: Yarelis Miller DO 01/04/2020 1:39 AM CDT Due to temporary technical issues with the PACS/Fluency reporting system, reports are being signed by the in house radiologist as a courtesy to ensure prompt reporting. The interpreting radiologist is f ully responsible for the content of the report.
== END 2020-01-04 03:38 | disposition left against medical advice (07) ==
LOC: ER 20:33
DX: N39.0 Urinary tract infection, site not specified (principal); I10 Essential (primary) hypertension; E11.9 Type 2 diabetes mellitus without complications; Z79.4 Long term (current) use of insulin
CPT/HCPCS: 96365; 96367; 87088; 85025; 87086; 80048; 36415; 80076; 87077; 87186; 83690; 74177; 51702; 99284; Q9967; J0696; 81003; 81015